=== PATIENT | male | born 1935 | race Caucasian/White ===

== ENCOUNTER 2017-08-19 05:30 | Inpatient (IN) | payer OTHER ==
--- NOTE | 2017-08-19 04:07 | PDOC ---
History of Present Illness - General Chief Complaint: Pain, Acute Stated Complaint: ABDOMINAL PAIN Time Seen by Provider: 08/19/17 04:06 - History of Present Illness Initial Comments: 08/19/17 04:29 This 81-year-old man with a history of hypertension/HLD/DM/[place] 3 with stents 7 , history of ruptured AAA and ulcerative colitis presents with approximately 6 hour history of epigastric pain and nausea/vomiting. Patient states that he ate Thanksgiving dinner last night at approximately 6 PM. He was well until he noted epigastric pain on the drive home . Onset of pain was approximately 9 PM with worsening over the next few hours. Patient had vomiting twice over the next 2-3 hours with emesis consisting of partially digested food (especially shrimp). The patient had small, formed bowel movement a few hours prior to presentation. He denies chest pain/shortness of breath/diaphoresis. He has not had any dysuria/hematuria/urinary frequency or urgency. He denies fever/ chills. Patient has been taking his medications as prescribed. No recent acute febrile illnesses. No sick contacts. No recent extended travel. Past History - Past Medical History Allergies/Adverse Reactions: Allergies Allergy/AdvReac Type Severity Reaction Status Date / Time No Known Allergies Allergy Verified 08/22/16 19:36 Home Medications: Ambulatory Orders Multivit-Min/FA/Lycopen/Lutein [Centrum Silver Tablet] 1 each PO DAILY 08/22/16 Rosuvastatin Calcium [Crestor] 20 mg PO HS 08/22/16 Apixaban [Eliquis] 2.5 mg PO BID tablet 08/25/16 Ferrous Gluconate [Iron] 256 mg PO DAILY 08/19/17 Anemia: Yes (microcytic) Asthma: No Cancer: No Cardiac Disorders: Yes ([place] X 2, AAA) CVA: No COPD: No CHF: Yes Dementia: No Diabetes: Yes (2003) GI Disorders: Yes (COLITIS) Disorders: No HTN: Yes Hypercholesterolemia: Yes Liver Disease: No Seizures: No Thyroid Disease: No - Surgical History Abdominal Surgery: Yes (AAA APR 2012) Appendectomy: No Cardiac Surgery: Yes (ANGIOPLASTY TIMES 6 STENTS LAST JUN 2014) Cholecystectomy: No Lung Surgery: No Neurologic Surgery: No Orthopedic Surgery: No - Immunization History Td Vaccination: No TDAP Vaccination: No Immunization Up to Date: No - Suicide/Smoking/Psychosocial Hx Smoking History: Former smoker Have you smoked in the past 12 months: No Number of Cigarettes Smoked Daily: 0 If you are a former smoker, when did you quit?: 1994 Hx Alcohol Use: No Drug/Substance Use Hx: No Substance Use Type: None Hx Substance Use Treatment: No Review of Systems - Review of Systems Able to Perform ROS?: Yes Comments:: 12 point review of systems is negative except for what is noted in the history of present illness *Physical Exam - Physical Exam Comments: GENERAL: Elderly man, alert and oriented 3, in moderate distress secondary to epigastric pain HEAD: Normal with no signs of trauma. EYES: PERRLA, EOMI, sclera anicteric, conjunctiva clear. ENT: Ears normal, nares patent, oropharynx clear without exudates. Dry mucous membranes. NECK: Normal range of motion, supple without lymphadenopathy, JVD, or masses. LUNGS: Breath sounds equal, clear to auscultation bilaterally. No wheezes, and no crackles. HEART:Regular rate and rhythm, normal S1 and S2 without murmur, rub or gallop. ABDOMEN:.Hypoactive bowel sounds. Moderate epigastric tenderness. No Desir's sign..No masses No distention. No rebound. Positive moderate involuntary guarding EXTREMITIES: Normal range of motion, no edema. No clubbing or cyanosis. No erythema, or tenderness. NEUROLOGICAL: Cranial nerves II through XII grossly intact. Normal speech. No focal neurological deficits. MUSCULOSKELETAL: Back non-tender to palpation, no CVA tenderness SKIN: Warm, Dry, normal turgor, no rashes or lesions noted. ED Treatment Course - LABORATORY CBC & Chemistry Diagram: 08/21/17 06:20 08/21/17 06:20 Progress Note - Progress Note Progress Note: Laboratory evaluation notable for a normal CBC. BUN is elevated at 30 with a creatinine of 1.4. Transaminases are elevated with AST of 431 and ALT of 293. Alkaline phosphatase 151 with bilirubin normal at 0.8. Lipase markedly elevated at 9119 Clinical presentation consistent with acute pancreatitis. patient has been transported to [facility] for Abd/Pelvic CT Care of patient transferred to incoming physician at end of shift *DC/Admit/Observation/Transfer Diagnosis at time of Disposition: Cholecystitis, Pancreatitis, Acute gallstone pancreatitis - Discharge Dispostion Condition at time of disposition: Stable - Referrals - Patient Instructions - Post Discharge Activity
[2017-08-19 05:45] LABS: BASOPHIL 0.3 % (0-2.0); EOSINOPHIL 0.5 % (0-4.5); MCH 28.7 pg (25.7-33.7); MCHC 33.2 g/dl (32.0-35.9); MEAN CELL VOLUME 86.5 fl (80-96); MEAN PLT VOLUME 9.2 fl (7.5-11.1); PLATELET COUNT 159 K/MM3 (134-434); RDW 13.4 % (11.9-15.9); WHITE BLOOD COUNT 7.4 K/mm3 (4.0-10.0)
[2017-08-19] MEDS ORDERED: morphine CARPU-JECT 4 MG/1 ML DISP.SYRIN IVPUSH ONE (05:49)
[2017-08-19] MEDS ORDERED: morphine CARPU-JECT 10 MG/1 ML DISP.SYRIN ONE (05:51)
[2017-08-19] MEDS ORDERED: ONDANSETRON 4 MG/2 ML VIAL ONE ×2 (05:52→07:53)
[2017-08-19] MEDS ORDERED: ONDANSETRON 4 MG/2 ML VIAL IVPUSH ONE ×2 (05:56→07:49)
[2017-08-19 05:57] LABS: INR 1.27 (0.82-1.09); PROTHROMBIN TIME (PATIENT) 14.4 SEC (9.98-11.88)
[2017-08-19 06:09] LABS: ALBUMIN 4.1 g/dl (3.4-5.0); ANION GAP 6 (8-16); BILIRUBIN,TOTAL 0.8 mg/dL (0.2-1.0); CALCIUM 8.7 mg/dL (8.5-10.1); CO2 28 mmol/L (21-32); CREATININE 1.4 mg/dL (0.7-1.3); GLUCOSE,RANDOM 183 mg/dL (74-106); SGPT/ALT 293 U/L (12-78)
[2017-08-19 06:10] LABS: ALK PHOS 151 U/L (45-117); TOT PROT 7.9 g/dl (6.4-8.2)
[2017-08-19 06:11] LABS: SGOT/AST 431 U/L (15-37)
[2017-08-19 06:33] LABS: CPK 115 IU/L (39-308)
[2017-08-19 06:34] LABS: TROPONIN I < 0.02 ng/ml (0.00-0.05)
[2017-08-19] MEDS ORDERED: morphine CARPU-JECT 2 MG/1 ML DISP.SYRIN IVPUSH ONE (06:56)
[2017-08-19] MEDS ORDERED: ONDANSETRON 4 MG/2 ML VIAL IVPUSH STA (06:56)
--- NOTE | 2017-08-19 07:41 | PDOC ---
*Physical Exam - Vital Signs Last Vital Signs Temp Pulse Resp BP Pulse Ox 98.3 F 94 H 20 150/100 98 08/19/17 07:19 08/19/17 07:19 08/19/17 07:19 08/19/17 07:19 08/19/17 07:19 ED Treatment Course - LABORATORY CBC & Chemistry Diagram: 08/19/17 04:41 08/19/17 04:41 - ADDITIONAL ORDERS Additional order review: Laboratory Results 08/19/17 08/19/17 08/19/17 04:41 04:41 04:41 PT with INR 14.40 H INR 1.27 H Sodium 139 Potassium 4.7 Chloride 105 Carbon Dioxide 28 Anion Gap 6 L BUN 30 H Creatinine 1.4 H Creat Clearance w eGFR 48.64 Random Glucose 183 H Calcium 8.7 Total Bilirubin 0.8 AST 431 H ALT 293 H Alkaline Phosphatase 151 H Creatine Kinase 115 Troponin I < 0.02 Total Protein 7.9 Albumin 4.1 Lipase 9119 H 08/19/17 04:41 RBC 5.21 MCV 86.5 MCHC 33.2 RDW 13.4 MPV 9.2 Neutrophils % 81.0 Lymphocytes % 12.4 Monocytes % 5.8 Eosinophils % 0.5 Basophils % 0.3 - Medications Given in the ED: ED Medications Discontinued Medications Generic Name Dose Route Start Last Admin Trade Name Eitan PRN Reason Stop Dose Admin Morphine Sulfate 6 mg 08/19/17 05:49 08/19/17 05:55 Morphine Injection - IVPUSH 08/19/17 05:50 6 mg NOW ONE Administration Ondansetron HCl 4 mg 08/19/17 05:56 08/19/17 05:56 Zofran Injection IVPUSH 08/19/17 05:57 4 mg NOW ONE Administration Medical Decision Making - Medical Decision Making 08/19/17 10:12 Gallstone Pancreatitis, No Fever, No White Count GB Wall Thickening, Pericholycystic Fluid and Distended GB Discussed with Dr. Ferrer, General Surgery, Calls out to ID and Zaid HERRERA and Az Accepted at [facility] by Dr. Jensen Will Give Meropenum and Transfer by squad (ground) 08/19/17 10:[address] Terrance Shore [place] He Will See PT at [facility] when he arrives 08/19/17 10:[address] Jensen Aware of Progress thus far. *DC/Admit/Observation/Transfer Diagnosis at time of Disposition: Cholecystitis, Acute gallstone pancreatitis Pancreatitis Qualifiers: Chronicity: acute Pancreatitis type: biliary Acute pancreatitis complication: unspecified Qualified Code(s): K85.10 - Biliary acute pancreatitis without necrosis or infection - Discharge Dispostion Condition at time of disposition: Stable Admit: Yes - Referrals Referrals: Austin Hodges MD [Primary Care Provider] - - Patient Instructions - Post Discharge Activity
[2017-08-19] MEDS ORDERED: HYDROmorphone HCL CARPU-JECT 1 MG/1 ML DISP.SYRIN IVPB ONE ×2 (07:49→21:15)
[2017-08-19] MEDS ORDERED: HYDROmorphone HCL CARPU-JECT 1 MG/1 ML DISP.SYRIN ONE ×2 (07:53→11:07)
[2017-08-19 09:44] LABS: URINE APPEARANCE Clear; URINE BILIRUBIN 1+ (NEGATIVE); URINE GLUCOSE (UA) Negative (NEGATIVE); URINE KETONE 1+ (NEGATIVE); URINE NITRITE Negative (NEGATIVE)
[2017-08-19 09:45] LABS: URINE BLOOD 1+ (NEGATIVE); URINE COLOR YELLOW; URINE LEUK ESTERASE 1+ (NEGATIVE); URINE PROTEIN 2+ (NEGATIVE)
[2017-08-19 10:09] LABS: URINE BACTERIA MODERATE /hpf (NEGATIVE)
[2017-08-19] MEDS ORDERED: MEROPENEM 1,000 MG in DEXTROSE 5%-WATER - 100 ML IVPB ONE (10:09)
--- NOTE | 2017-08-19 10:31 | CON.ID ---
Consult Consult Specialty:: infectious diseases Reason for Consultation:: choleycystitis,pancreatitis - History of Present Illness Chief Complaint: abd pain History of Present Illness: 79 year-old male with a PMH significant for HTN, HLD, CAD s/p [place] x3 s/p CABG s/ p stents x 7 (on Eliquis), AAA s/p surgical repair (04/2012), IDDM, and inflammatory bowel disesase/ulcerative colitis. with infection with mssa of the wound with removal of xiphistenum came because of epigastric pain, nausea and vomiting following Thanksgiving dinner. denies any other issues was wiht his son had dinner followed by small amount alcohol currently patients main symptoms are abd pain in r uq - History Source History Provided By: Patient, Family Member Limitations to Obtaining History: No Limitations - Past Medical History Cardio/Vascular: Yes: CAD, HTN, [place] Gastrointestinal: Yes: Inflamatory Bowel Disease (since 2003) Endocrine: Yes: Diabetes Mellitus - Past Surgical History Past Surgical History: Yes: AAA Repair, Stent - Alcohol/Substance Use Hx Alcohol Use: No - Smoking History Smoking history: Former smoker Have you smoked in the past 12 months: No Aproximately how many cigarettes per day: 0 If you are a former smoker, when did you quit?: 1994 Home Medications - Allergies Allergies/Adverse Reactions: Allergies Allergy/AdvReac Type Severity Reaction Status Date / Time No Known Allergies Allergy Verified 08/22/16 19:36 - Home Medications Home Medications: Ambulatory Orders Multivit-Min/FA/Lycopen/Lutein [Centrum Silver Tablet] 1 each PO DAILY 08/22/16 Rosuvastatin Calcium [Crestor] 20 mg PO HS 08/22/16 Apixaban [Eliquis] 2.5 mg PO BID tablet 08/25/16 Ferrous Gluconate [Iron] 256 mg PO DAILY 08/19/17 Family Disease History - Family Disease History Family Disease History: Other: Father ( 87), Mother ( 78), Sister ( cirrhosis 70s) Review of Systems - Review of Systems Constitutional: reports: No Symptoms Eyes: reports: No Symptoms HENT: reports: No Symptoms Neck: reports: No Symptoms Cardiovascular: reports: No Symptoms Respiratory: reports: No Symptoms Gastrointestinal: reports: Abdominal Pain (ruq) Genitourinary: reports: No Symptoms Musculoskeletal: reports: No Symptoms Integumentary: reports: No Symptoms Neurological: reports: No Symptoms Endocrine: reports: No Symptoms Hematology/Lymphatic: reports: No Symptoms Psychiatric: reports: No Symptoms Physical Exam Vital Signs: Vital Signs Temperature 98.1 F 08/19/17 07:30 Pulse Rate 110 H 08/19/17 10:26 Respiratory Rate 20 08/19/17 10:26 Blood Pressure 139/92 08/19/17 10:26 O2 Sat by Pulse Oximetry (%) 98 08/19/17 07:30 Constitutional: Yes: Well Nourished, Calm, Mild Distress Eyes: Yes: Conjunctiva Clear Neck: Yes: Supple, Trachea Midline Cardiovascular: Yes: Regular Rate and Rhythm, Other (scar on the chest well healed) Respiratory: Yes: Regular, CTA Bilaterally Gastrointestinal: Yes: Hypoactive Bowel Sounds, Tenderness (ruq,no rebound, guarding and rigidity), Other (well healed scar on the abdomen) Musculoskeletal: Yes: WNL Extremities: Yes: WNL Neurological: Yes: Alert, Oriented Psychiatric: Yes: Alert, Oriented Labs: CBC, BMP 08/19/17 04:41 08/19/17 04:41 Imaging - Results Ultrasound: Report Reviewed, Image Reviewed EKG: Report Reviewed, Image Reviewed Assessment/Plan this patient with multiple medical problems and history of staph infection and immunocompromised being admitted for choleycystitis and pancreatitis ct scan seen patient also has hydrops choleycystitis pancreatitis hydrops abd pain plan will start patient on immipenam very close watch if patient starts detoriating consider icu monitor for fevers and wbc surgery on case will need surgery once stable rest as per primary team
--- NOTE | 2017-08-19 10:34 | CONSULT ---
Consult Consult Specialty:: General Surgery Referred by:: Reddy Sorenson Reason for Consultation:: Abdominal Pain - History of Present Illness Chief Complaint: Abdominal Pain History of Present Illness: 81 yo male PMH HTN, DM, HLD, IBD ulcerative colitis, CAD s/p CABGX4, previous [place] X3 first in 1994, s/p AAA s/p open repair, 7 stents on Eliquis, chronic systolic and diastolic heart failure presented to the ED with epigastric pain, nausea and vomiting following Thanksgiving dinner. He ate dinner at 6pm along with a small amount of alcohol. At 10pm he had an acute onset of epigastric pain which worsened over the next few hours. He had two episodes of emesis of partially digested food. He also had a small bowel movement. Patient denies chest pain, palpitations, and shortness of breath. He had a similar upper abdominal pain one year ago that was treated non-operatively and he was aware of gallstones. We were asked to assess. - History Source History Provided By: Patient Limitations to Obtaining History: No Limitations - Past Medical History Cardio/Vascular: Yes: CAD, HTN, [place] Gastrointestinal: Yes: Inflamatory Bowel Disease (since 2003) Endocrine: Yes: Diabetes Mellitus - Past Surgical History Past Surgical History: Yes: AAA Repair, Stent - Alcohol/Substance Use Hx Alcohol Use: No - Smoking History Smoking history: Former smoker Have you smoked in the past 12 months: No Aproximately how many cigarettes per day: 0 If you are a former smoker, when did you quit?: 1994 - Social History [facility] History of Recent Travel: No Home Medications - Allergies Allergies/Adverse Reactions: Allergies Allergy/AdvReac Type Severity Reaction Status Date / Time No Known Allergies Allergy Verified 08/22/16 19:36 - Home Medications Home Medications: Ambulatory Orders Multivit-Min/FA/Lycopen/Lutein [Centrum Silver Tablet] 1 each PO DAILY 08/22/16 Rosuvastatin Calcium [Crestor] 20 mg PO HS 08/22/16 Apixaban [Eliquis] 2.5 mg PO BID tablet 08/25/16 Ferrous Gluconate [Iron] 256 mg PO DAILY 08/19/17 Family Disease History - Family Disease History Family Disease History: Other: Father ( 87), Mother ( 78), Sister ( cirrhosis 70s) Review of Systems - Review of Systems Constitutional: denies: Chills, Fever Eyes: denies: Blurred Vision, Recent Change in Vision HENT: denies: Difficult Swallowing, Throat Pain Neck: denies: Stiffness, Swollen Glands Cardiovascular: denies: Chest Pain, Palpitations, Shortness of Breath Respiratory: denies: Cough, SOB Gastrointestinal: reports: Abdominal Pain (previous episode of similar pain 1 year ago), Indigestion Genitourinary: denies: Frequency, Incontinence Breasts: reports: No Symptoms Reported. denies: Pain Musculoskeletal: reports: Back Pain, Joint Pain Integumentary: denies: Lesions, Rash Neurological: denies: Change in LOC, Headache Endocrine: denies: Unexplained Weight Gain, Unexplained Weight Loss Hematology/Lymphatic: denies: Easily Bruised, Excessive Bleeding Psychiatric: denies: Anxiety, Depression Pain Intensity: 5 Physical Exam Vital Signs: Vital Signs Temperature 98.1 F 08/19/17 07:30 Pulse Rate 110 H 08/19/17 10:26 Respiratory Rate 20 08/19/17 10:26 Blood Pressure 139/92 08/19/17 10:26 O2 Sat by Pulse Oximetry (%) 98 08/19/17 07:30 Vital Signs Period Temp Pulse Resp BP Sys/[place]ont Pulse Ox Last 24 Hr 97.3 F-98.3 F 88-110 16-24 139-177/92-101 97-99 Constitutional: Yes: Well Nourished, Calm, Mild Distress Eyes: Yes: Conjunctiva Clear, EOM Intact HENT: Yes: Atraumatic, Normocephalic Neck: Yes: Supple, Trachea Midline Cardiovascular: Yes: Regular Rate and Rhythm Respiratory: Yes: Regular, CTA Bilaterally, Other (median sternotomy scar with excavated distal area) Gastrointestinal: Yes: Normal Bowel Sounds, Soft, Palpable Mass (GB is palpable) , Tenderness (tenderness right subcostal, +murphys, voluntary gaurding), Tenderness, Epigastrium, Other (healed midline lapraotomy). No: Ascites, Tenderness, Rebound, Vomiting ...Rectal Exam: Yes: Mass, Sphincter Tone Normal Renal/: No: CVA Tenderness - Left, CVA Tenderness - Right Musculoskeletal: No: Muscle Pain, Muscle Weakness Extremities: No: Cool, Cyanosis Edema: No Peripheral Pulses WNL: Yes Wound/Incision: Yes: Clean/Dry, Other (midean sternotomy and midline lapraotyomy scar well healed) Neurological: Yes: Alert, Oriented ...Motor Strength: WNL, LLE, RLE Psychiatric: Yes: Alert, Oriented Labs: CBC, BMP 08/19/17 04:41 08/19/17 04:41 CBC,CMP WBC 7.4 K/mm3 (4.0-10.0) 08/19/17 04:41 RBC 5.21 M/mm3 (4.00-5.60) 08/19/17 04:41 Hgb 15.0 GM/dL (11.7-16.9) 08/19/17 04:41 Hct 45.1 % (35.4-49) 08/19/17 04:41 MCV 86.5 fl (80-96) 08/19/17 04:41 MCH 28.7 pg (25.7-33.7) 08/19/17 04:41 MCHC 33.2 g/dl (32.0-35.9) 08/19/17 04:41 RDW 13.4 % (11.9-15.9) 08/19/17 04:41 Plt Count 159 K/MM3 (134-434) 08/19/17 04:41 MPV 9.2 fl (7.5-11.1) 08/19/17 04:41 Neutrophils % 81.0 % (42.8-82.8) 08/19/17 04:41 Lymphocytes % 12.4 % (8-40) 08/19/17 04:41 Monocytes % 5.8 % (3.8-10.2) 08/19/17 04:41 Eosinophils % 0.5 % (0-4.5) 08/19/17 04:41 Basophils % 0.3 % (0-2.0) 08/19/17 04:41 Sodium 139 mmol/L (136-145) 08/19/17 04:41 Potassium 4.7 mmol/L (3.5-5.1) 08/19/17 04:41 Chloride 105 mmol/L (98-107) 08/19/17 04:41 Carbon Dioxide 28 mmol/L (21-32) 08/19/17 04:41 Anion Gap 6 (8-16) L 08/19/17 04:41 BUN 30 mg/dL (7-18) H 08/19/17 04:41 Creatinine 1.4 mg/dL (0.7-1.3) H 08/19/17 04:41 Creat Clearance w eGFR 48.64 (>60) 08/19/17 04:41 Random Glucose 183 mg/dL (74-106) H 08/19/17 04:41 Calcium 8.7 mg/dL (8.5-10.1) 08/19/17 04:41 Total Bilirubin 0.8 mg/dL (0.2-1.0) 08/19/17 04:41 AST 431 U/L (15-37) H 08/19/17 04:41 ALT 293 U/L (12-78) H 08/19/17 04:41 Alkaline Phosphatase 151 U/L (45-117) H 08/19/17 04:41 Creatine Kinase 115 IU/L (39-308) 08/19/17 04:41 Troponin I < 0.02 ng/ml (0.00-0.05) 08/19/17 04:41 Total Protein 7.9 g/dl (6.4-8.2) 08/19/17 04:41 Albumin 4.1 g/dl (3.4-5.0) 08/19/17 04:41 Lipase 9119 U/L (73-393) H 08/19/17 04:41 Abnormal Lab Results 08/19/17 08/19/17 08/19/17 04:41 04:41 04:41 PT with INR 14.40 H INR 1.27 H Anion Gap 6 L BUN 30 H Creatinine 1.4 H Random Glucose 183 H AST 431 H ALT 293 H Alkaline Phosphatase 151 H Lipase 9119 H Urine Protein Urine Ketones Urine Blood Urine Bilirubin Ur Leukocyte Esterase 08/19/17 09:40 PT with INR INR Anion Gap BUN Creatinine Random Glucose AST ALT Alkaline Phosphatase Lipase Urine Protein 2+ H Urine Ketones 1+ H Urine Blood 1+ H Urine Bilirubin 1+ H Ur Leukocyte Esterase 1+ H Imaging - Results Cat Scan: Report Reviewed, Image Reviewed (distended GB with impressive edema in the GB wall/ pericholecystic fluid and small dependent stone in GB) Ultrasound: Report Reviewed, Image Reviewed (large distend GB with small stones , wall thickening and pericholecystic fluid) Problem List - Problems (1) Acute gallstone pancreatitis Assessment/Plan: 81yo male with signifcant cardiac history presents with acute gallstone pancreatitis and cholecystitis after thanksgiving dinner. He is in guarded condition. He may be a surgical candidate but should be fully evaluated and medically optimized. The discussion was had about the possibility of cholecystectomy after he is stabilized alternatively if he is deemed to great a risk IR PTC and ERCP are possible alternatives. NPO and IVF hydration Trend labs GI evaluation - MRCP? Consider IV antibiotics - ID consult Cardiology assessment Anticipating and Laparoscopic cholecystetcomy during this admission (early- mid next week?) Please kindly provide risk stratification for general anesthesia we will continue to follow Thank you for the opportunity to participate in the care of this patient. Code(s): K85.10 - BILIARY ACUTE PANCREATITIS WITHOUT NECROSIS OR INFECTION (2) Pancreatitis Assessment/Plan: Admit to medicine NPO and IVF hydration Trend labs (lipase >9000) Medical optimization in anticipation of Cholecystetcomy Code(s): K85.90 - ACUTE PANCREATITIS WITHOUT NECROSIS OR INFECTION, UNSP Qualifiers: Chronicity: acute Pancreatitis type: biliary Acute pancreatitis complication: unspecified Qualified Code(s): K85.10 - Biliary acute pancreatitis without necrosis or infection (3) Coronary arteriosclerosis Assessment/Plan: Cardiology evaluation as deemed appropriate by primary in anticipation of surgery Code(s): I25.10 - ATHSCL HEART DISEASE OF [place] CORONARY ARTERY W/O ANG PCTRS (4) Diabetes Code(s): E11.9 - TYPE 2 DIABETES MELLITUS WITHOUT COMPLICATIONS (5) Hyperlipidemia Code(s): E78.5 - HYPERLIPIDEMIA, UNSPECIFIED
[2017-08-19] MEDS ORDERED: HYDROmorphone HCL CARPU-JECT 1 MG/1 ML DISP.SYRIN IVPUSH ONE ×2 (11:05→20:10)
--- NOTE | 2017-08-19 13:04 | HP ---
CHIEF COMPLAINT: PCP: HISTORY OF PRESENT ILLNESS: 79 year-old male with a PMH significant for HTN, HLD, CAD s/p KS x3 s/p CABG s/ p stents x 7 (on Eliquis), chronic systolic and diastolic heart failure, AAA s/ p surgical repair (04/2012), IDDM, and inflammatory bowel disesase/ulcerative colitis. Presented to the ED with epigastric pain, nausea and vomiting following Thanksgiving dinner. He had dinner at 6pm. At 9pm he had an acute onset of epigastric pain which worsened over the next few hours. He had two episodes of emesis of partially digested food. He also had a small bowel movement. Patient denies chest pain, palpitations, SOB, GARCIA, or lower extremity edema. He denies headache, fever, sweats, chills. He denies dysuria, hematuria, frequency, or urgency. ER course was notable for: (1) BP 177/101 (2) Lipase 9119 Recent Travel: No PAST MEDICAL HISTORY: Hypertension Hyperlipidemia Coronary artery disease AAA IDDM Inflammatory bowel disease/ulcerative colitis PAST SURGICAL HISTORY: Cardiac stents x7 CABG complicated by sternal wound infection Surgical repair of AAA Social History: Smoking: quit 1994 Alcohol: no Drugs: no Family History: non-contributory Allergies No Known Allergies Allergy (Verified 08/22/16 19:36) HOME MEDICATIONS: Home Medications Medication Instructions Recorded Multivit-Min/FA/Lycopen/Lutein 1 each PO DAILY 08/22/16 [Centrum Silver Tablet] Rosuvastatin Calcium [Crestor] 20 mg PO HS 08/22/16 Apixaban [Eliquis] 2.5 mg PO BID tablet 08/25/16 Ferrous Gluconate [Iron] 256 mg PO DAILY 08/19/17 REVIEW OF SYSTEMS CONSTITUTIONAL: Absent: fever, chills, diaphoresis, generalized weakness, malaise, loss of appetite, weight change HEENT: Absent: rhinorrhea, nasal congestion, throat pain, throat swelling, difficulty swallowing, mouth swelling, ear pain, eye pain, visual changes CARDIOVASCULAR: Absent: chest pain, syncope, palpitations, irregular heart rate, lightheadedness , peripheral edema RESPIRATORY: Absent: cough, shortness of breath, dyspnea with exertion, orthopnea, wheezing, stridor, hemoptysis GASTROINTESTINAL: Present: abdominal pain, vomiting Absent: abdominal distension, nausea, diarrhea, constipation, melena, hematochezia GENITOURINARY: Absent: dysuria, frequency, urgency, hesitancy, hematuria, flank pain, genital pain MUSCULOSKELETAL: Absent: myalgia, arthralgia, joint swelling, back pain, neck pain SKIN: Absent: rash, itching, pallor HEMATOLOGIC/IMMUNOLOGIC: Absent: easy bleeding, easy bruising, lymphadenopathy, frequent infections ENDOCRINE: Absent: unexplained weight gain, unexplained weight loss, heat intolerance, cold intolerance NEUROLOGIC: Absent: headache, focal weakness or paresthesias, dizziness, unsteady gait, seizure, mental status changes, bladder or bowel incontinence PSYCHIATRIC: Absent: anxiety, depression, suicidal or homicidal ideation, hallucinations. PHYSICAL EXAMINATION Vital Signs - 24 hr 08/19/17 08/19/17 08/19/17 04:08 05:41 07:19 Temperature 97.5 F L 97.3 F L 98.3 F Pulse Rate 90 Pulse Rate [ 88 94 H Right Apical] Respiratory 18 16 20 Rate Blood Pressure 159/94 Blood Pressure 177/101 150/100 [Left Arm] O2 Sat by Pulse 99 97 98 Oximetry (%) 08/19/17 08/19/17 08/19/17 07:30 09:03 09:29 Temperature 98.1 F Pulse Rate Pulse Rate [ 92 H 100 H Right Apical] Respiratory 20 24 Rate Blood Pressure Blood Pressure 154/95 166/93 168/97 [Left Arm] O2 Sat by Pulse 98 Oximetry (%) 08/19/17 10:26 Temperature Pulse Rate Pulse Rate [ 110 H Right Apical] Respiratory 20 Rate Blood Pressure Blood Pressure 139/92 [Left Arm] O2 Sat by Pulse Oximetry (%) GENERAL: Awake, alert, and fully oriented; anxious HEAD: Normal with no signs of trauma. EYES: Pupils equal, round and reactive to light, extraocular movements intact, sclera anicteric, conjunctiva clear. No ptosis. EARS, NOSE, THROAT: Ears normal, nares patent, oropharynx clear without exudates. Moist mucous membranes. NECK: Normal range of motion, supple without lymphadenopathy, JVD, or masses. LUNGS: Breath sounds equal, clear to auscultation bilaterally. No wheezes, and no crackles. No accessory muscle use. HEART: Regular rate and rhythm, normal S1 and S2 without murmur, rub or gallop. ABDOMEN: Soft, nontender, not distended, normoactive bowel sounds, no guarding, no rebound, no masses. MUSCULOSKELETAL: Normal range of motion at all joints. No bony deformities or tenderness. No CVA tenderness. UPPER EXTREMITIES: 2+ pulses, warm, well-perfused. No cyanosis. No clubbing. No peripheral edema. LOWER EXTREMITIES: 2+ pulses, warm, well-perfused. No calf tenderness. No peripheral edema. NEUROLOGICAL: Cranial nerves II-XII intact. Normal speech. PSYCHIATRIC: Anxious SKIN: Warm, dry, normal turgor Laboratory Results - last 24 hr 08/19/17 08/19/17 08/19/17 04:41 04:41 04:41 WBC 7.4 RBC 5.21 Hgb 15.0 Hct 45.1 MCV 86.5 MCH 28.7 MCHC 33.2 RDW 13.4 Plt Count 159 MPV 9.2 Neutrophils % 81.0 Lymphocytes % 12.4 Monocytes % 5.8 Eosinophils % 0.5 Basophils % 0.3 PT with INR 14.40 H INR 1.27 H Sodium 139 Potassium 4.7 Chloride 105 Carbon Dioxide 28 Anion Gap 6 L BUN 30 H Creatinine 1.4 H Creat Clearance w eGFR 48.64 Random Glucose 183 H Calcium 8.7 Total Bilirubin 0.8 AST 431 H ALT 293 H Alkaline Phosphatase 151 H Creatine Kinase Troponin I Total Protein 7.9 Albumin 4.1 Lipase Urine Color Urine Appearance Urine pH Ur Specific [place] Urine Protein Urine Glucose (UA) Urine Ketones Urine Blood Urine Nitrite Urine Bilirubin Urine Urobilinogen Ur Leukocyte Esterase Urine RBC Urine WBC Ur Epithelial Cells Urine Bacteria 08/19/17 08/19/17 04:41 09:40 WBC RBC Hgb Hct MCV MCH MCHC RDW Plt Count MPV Neutrophils % Lymphocytes % Monocytes % Eosinophils % Basophils % PT with INR INR Sodium Potassium Chloride Carbon Dioxide Anion Gap BUN Creatinine Creat Clearance w eGFR Random Glucose Calcium Total Bilirubin AST ALT Alkaline Phosphatase Creatine Kinase 115 Troponin I < 0.02 Total Protein Albumin Lipase 9119 H Urine Color Yellow Urine Appearance Clear Urine pH 6.0 Ur Specific [place] 1.025 Urine Protein 2+ H Urine Glucose (UA) Negative Urine Ketones 1+ H Urine Blood 1+ H Urine Nitrite Negative Urine Bilirubin 1+ H Urine Urobilinogen 1.0 Ur Leukocyte Esterase 1+ H Urine RBC 3-5 Urine WBC 5-10 Ur Epithelial Cells Moderate Urine Bacteria Moderate ASSESSMENT/PLAN: 79 year-old male with a PMH significant for HTN, HLD, CAD s/p KS x3 s/p CABG s/ p stents x 7, systolic and diastolic heart failure, AAA, IDDM, and inflammatory bowel disesase/ulcerative colitis. Admitted for acute gallstone pancreatitis. Acute gallstone pancreatitis --CTAP: overdistended hydrops GB, layering stones, suggestion of free fluid --US: mild anterior free fluid and edema; significant 12mm wall thickening and edema anterior wall; layering stones --LFTs elevated --Lipase >9000 --no fever, no leukocytosis --MRCP ordered --continue IV fluids but close monitoring for volume overload in this 81 year -old man (looks older than stated age) with significant cardiac history and unknown valvular status as last echo available is 2013 --GI and surgery following CAD s/p CABG s/p stents x 7 --stop Eliquis and start IV heparin due to possible surgical intervention --not on home ASA or beta dariel; hold statin --consider cardiology consult for pre-operative evaluation Chronic systolic and diastolic heart failure --last available echo from 2013: LV mildly reduced, impaired relaxation, mild global hypokinesis; trace TR, mild AI --appears euvolemic --echo ordered IDDM --Novolog sliding scale coverage IBD/ulcerative colitis --no acute issues F/E/N Fluids: NS @ 100mL/hr Electrolytes: replete as indicated Nutrition: NPO DVT prophylaxis: heparin drip Physical therapy evaluation Dispo: continues to require inpatient care. Full code. Visit type - Emergency Visit Emergency Visit: Yes ED Registration Date: 08/19/17 Care time: The patient presented to the Emergency Department on the above date and was hospitalized for further evaluation of their emergent condition. - New Patient This patient is new to me today: Yes Date on this admission: 08/19/17 - Critical Care Critical Care patient: No
[2017-08-19 14:42] VITALS: BMI 20.7
--- NOTE | 2017-08-19 15:32 | HP ---
CHIEF COMPLAINT: PCP: HISTORY OF PRESENT ILLNESS: ER course was notable for: (1) (2) (3) Recent Travel: PAST MEDICAL HISTORY: PAST SURGICAL HISTORY: Social History: Smoking: Alcohol: Drugs: Family History: Allergies No Known Allergies Allergy (Verified 08/22/16 19:36) HOME MEDICATIONS: Home Medications Medication Instructions Recorded Multivit-Min/FA/Lycopen/Lutein 1 each PO DAILY 08/22/16 [Centrum Silver Tablet] Rosuvastatin Calcium [Crestor] 20 mg PO HS 08/22/16 Apixaban [Eliquis] 2.5 mg PO BID tablet 08/25/16 Ferrous Gluconate [Iron] 256 mg PO DAILY 08/19/17 REVIEW OF SYSTEMS CONSTITUTIONAL: Absent: fever, chills, diaphoresis, generalized weakness, malaise, loss of appetite, weight change HEENT: Absent: rhinorrhea, nasal congestion, throat pain, throat swelling, difficulty swallowing, mouth swelling, ear pain, eye pain, visual changes CARDIOVASCULAR: Absent: chest pain, syncope, palpitations, irregular heart rate, lightheadedness , peripheral edema RESPIRATORY: Absent: cough, shortness of breath, dyspnea with exertion, orthopnea, wheezing, stridor, hemoptysis GASTROINTESTINAL: Absent: abdominal pain, abdominal distension, nausea, vomiting, diarrhea, constipation, melena, hematochezia GENITOURINARY: Absent: dysuria, frequency, urgency, hesitancy, hematuria, flank pain, genital pain MUSCULOSKELETAL: Absent: myalgia, arthralgia, joint swelling, back pain, neck pain SKIN: Absent: rash, itching, pallor HEMATOLOGIC/IMMUNOLOGIC: Absent: easy bleeding, easy bruising, lymphadenopathy, frequent infections ENDOCRINE: Absent: unexplained weight gain, unexplained weight loss, heat intolerance, cold intolerance NEUROLOGIC: Absent: headache, focal weakness or paresthesias, dizziness, unsteady gait, seizure, mental status changes, bladder or bowel incontinence PSYCHIATRIC: Absent: anxiety, depression, suicidal or homicidal ideation, hallucinations. PHYSICAL EXAMINATION Vital Signs - 24 hr 08/19/17 08/19/17 08/19/17 04:08 05:41 07:19 Temperature 97.5 F L 97.3 F L 98.3 F Pulse Rate 90 Pulse Rate [ 88 94 H Right Apical] Respiratory 18 16 20 Rate Blood Pressure 159/94 Blood Pressure 177/101 150/100 [Left Arm] O2 Sat by Pulse 99 97 98 Oximetry (%) 08/19/17 08/19/17 08/19/17 07:30 09:03 09:29 Temperature 98.1 F Pulse Rate Pulse Rate [ 92 H 100 H Right Apical] Respiratory 20 24 Rate Blood Pressure Blood Pressure 154/95 166/93 168/97 [Left Arm] O2 Sat by Pulse 98 Oximetry (%) 08/19/17 08/19/17 10:26 12:20 Temperature 97.9 F Pulse Rate 106 H Pulse Rate [ 110 H Right Apical] Respiratory 20 18 Rate Blood Pressure 149/98 Blood Pressure 139/92 [Left Arm] O2 Sat by Pulse 97 Oximetry (%) GENERAL: Awake, alert, and fully oriented, in no acute distress. HEAD: Normal with no signs of trauma. EYES: Pupils equal, round and reactive to light, extraocular movements intact, sclera anicteric, conjunctiva clear. No lid lag. EARS, NOSE, THROAT: Ears normal, nares patent, oropharynx clear without exudates. Moist mucous membranes. NECK: Normal range of motion, supple without lymphadenopathy, JVD, or masses. LUNGS: Breath sounds equal, clear to auscultation bilaterally. No wheezes, and no crackles. No accessory muscle use. HEART: Regular rate and rhythm, normal S1 and S2 without murmur, rub or gallop. ABDOMEN: Soft, nontender, not distended, normoactive bowel sounds, no guarding, no rebound, no masses. No hepatomegaly or splenomegaly. MUSCULOSKELETAL: Normal range of motion at all joints. No bony deformities or tenderness. No CVA tenderness. UPPER EXTREMITIES: 2+ pulses, warm, well-perfused. No cyanosis. No clubbing. No peripheral edema. LOWER EXTREMITIES: 2+ pulses, warm, well-perfused. No calf tenderness. No peripheral edema. NEUROLOGICAL: Cranial nerves II-XII intact. Normal speech. Normal gait. PSYCHIATRIC: Cooperative. Good eye contact. Appropriate mood and affect. SKIN: Warm, dry, normal turgor, no rashes or lesions noted, normal capillary refill. Laboratory Results - last 24 hr 08/19/17 08/19/17 08/19/17 04:41 04:41 04:41 WBC 7.4 RBC 5.21 Hgb 15.0 Hct 45.1 MCV 86.5 MCH 28.7 MCHC 33.2 RDW 13.4 Plt Count 159 MPV 9.2 Neutrophils % 81.0 Lymphocytes % 12.4 Monocytes % 5.8 Eosinophils % 0.5 Basophils % 0.3 PT with INR 14.40 H INR 1.27 H Sodium 139 Potassium 4.7 Chloride 105 Carbon Dioxide 28 Anion Gap 6 L BUN 30 H Creatinine 1.4 H Creat Clearance w eGFR 48.64 Random Glucose 183 H Calcium 8.7 Total Bilirubin 0.8 AST 431 H ALT 293 H Alkaline Phosphatase 151 H Creatine Kinase Troponin I Total Protein 7.9 Albumin 4.1 Lipase Urine Color Urine Appearance Urine pH Ur Specific [place] Urine Protein Urine Glucose (UA) Urine Ketones Urine Blood Urine Nitrite Urine Bilirubin Urine Urobilinogen Ur Leukocyte Esterase Urine RBC Urine WBC Ur Epithelial Cells Urine Bacteria 08/19/17 08/19/17 04:41 09:40 WBC RBC Hgb Hct MCV MCH MCHC RDW Plt Count MPV Neutrophils % Lymphocytes % Monocytes % Eosinophils % Basophils % PT with INR INR Sodium Potassium Chloride Carbon Dioxide Anion Gap BUN Creatinine Creat Clearance w eGFR Random Glucose Calcium Total Bilirubin AST ALT Alkaline Phosphatase Creatine Kinase 115 Troponin I < 0.02 Total Protein Albumin Lipase 9119 H Urine Color Yellow Urine Appearance Clear Urine pH 6.0 Ur Specific [place] 1.025 Urine Protein 2+ H Urine Glucose (UA) Negative Urine Ketones 1+ H Urine Blood 1+ H Urine Nitrite Negative Urine Bilirubin 1+ H Urine Urobilinogen 1.0 Ur Leukocyte Esterase 1+ H Urine RBC 3-5 Urine WBC 5-10 Ur Epithelial Cells Moderate Urine Bacteria Moderate ASSESSMENT/PLAN:
--- NOTE | 2017-08-19 15:59 | PN ---
Progress Note (short form) - Note Progress Note: GI CONSULTATION: PLEASE SEE THE COMPLETE DICTATION IN BRIEF: 81M WITH HTN/DM/SEVERE VASCULAR DISEASE S/P WA/ ICS x 7, S/P CABG x4 ON A/C ADMIT WITH CLINICAL, BIOCHEMICAL, AND RADIOGRAPHIC EVIDENCE OF ACUTE INTERSTITIAL GALLSTONE PANCREATITIS WITHOUT EVIDENCE OF PANCREATIC NECROSIS OR END ORGAN DAMAGE WITH PROBABLE ACUTE CHOLECYSTITIS WITHOUT EVIDENCE OF CHOLANGITIS BUT CANNOT EXCLUDE CBD STONE RECC: AGGRESSIVE IVF HYDRATION/ PAIN RX/ IV ABX F/U LABS/ C-RP/ LFT'S MRCP TO ASSESS THE CBD NON-INVASIVELY WOULD STRONGLY CONSIDER CHOLECYSTECTOMY ONCE PANCREATITIS HAS IMPROVED SIGNIFICANTLY IF PATIENT A CANDIDATE FOR SUCH WOULD CONSIDER D/C ELIQUIS AND IF PATIENT MUST BE ON A/C, THEN WOULD USE A VERY SHORT ACTING AGENT LIKE IV HEPARIN HE MAY WARRANT ERCP AND OR L.C. IN NEAR FUTURE--PENDING PROGRESS AND MRCP FINDINGS HAVE DISCUSSED FINDINGS AND CONCERN WITH SON IN DETAIL AT BEDSIDE THANKS, MD LUKE
[2017-08-19] MEDS ORDERED: HEPARIN NA (PORCINE) 5,000 UNITS/ML 1ML VIAL IVPUSH PRN (16:02)
--- NOTE | 2017-08-19 16:38 | CONS ---
GASTROENTEROLOGY CONSULTATION DATE OF CONSULTATION: 08/19/2017 REASON FOR CONSULTATION: I was asked by Dr. Jensen to evaluate the patient for pancreatitis and cholecystitis. HISTORY OF PRESENT ILLNESS: The patient is an 81-year-old white male who is a very poor informant. His son is at the bedside who can elicit some of his medical history, however, he is not apprised to all of his medical history so therefore the history is limited and is aided by the EMR. Apparently the patient was up and about in his usual state of health until Thanksgiving dinner. Yesterday he ate turkey and ham and then at approximately 10:00 p.m. last night he had the onset of severe epigastric pain. He vomited twice. The pain got worse and at 3:00 a.m. he proceeded to [facility]. He was seen by Dr. Sorenson in the [facility] and he underwent examination and blood work testing and was found to have acute pancreatitis. The patient was noted to have significant elevation of his lipase. On imaging he had a CAT scan and sonogram that revealed gallbladder wall thickening, pericholecystic fluid with a distended gallbladder consistent with cholecystitis, and a marked pancreatitis. There was no evidence of pancreatic necrosis or infection. The patient was started on intravenous meropenem and he was transferred to [facility] for admission. The patient states that since he has been here he feels much better. His abdominal pain is much less. It was epigastric and went through to the back. He did not have fevers, chills, or sweats. He did not have change in bowel habits, rectal bleeding, or tarry stools. He has not had recent gastrointestinal issues he reports although there is prior history of inflammatory bowel disease, but again the details of such are unclear. The patient also has underlying hypertension, diabetes, significant vascular disease, and atherosclerotic coronary artery disease and he is status post a CABG x4. He has had TN x3 and he is status post an AAA with repair after rupture and he has over 7 intracoronary stents and remains on chronic anticoagulation. SOCIAL HISTORY: The patient reports that he is a former smoker and he rarely drinks alcohol. ALLERGIES: He has no known drug allergies. MEDICATIONS: He comes in on: 1. Centrum. 2. Crestor. 3. Eliquis. 4. Iron. Currently in the hospital the medications he is receiving includes: 1. Eliquis. 2. Intravenous fluid. 3. Synthroid. 4. He is getting pain medication. 5. He got a dose of meropenem. 6. Narcotic pain medication as well. PHYSICAL EXAMINATION: Vital Signs: Currently he is afebrile. His resting heart rate is around 100 to 104 and his blood pressure is elevated at 149/98. General: On physical examination he is not in acute distress. He is moving about in the bed easily. HEENT: Sclerae are anicteric. Skin: His skin is cool. Abdomen: Not distended. It is flat. He has a large scar that is vertical that corresponds to prior CABG and it is healed. His abdomen is symmetric. Bowel sounds are active. There is tenderness to palpation in the epigastric and certainly in the right upper quadrant region. There is no rebound or guarding. LABORATORY DATA: Notable in that his current INR is 1.2. His white count is 7.4 with a hemoglobin of 15, hematocrit of 45, and he has 159,000 platelets. His chemistries reveal a sodium of 139, potassium of 4.7, chloride of 105, bicarbonate of 28, and BUN of 30. Now interestingly his AST is 431 with an ALT of 293 and an alkaline phosphatase of 150 and his bilirubin is 0.8. His lipase is 9000 and his albumin is 4.1. His total protein is 7.9. The reports of the scans are noted. He had a CT scan of the abdomen and pelvis that was performed at [facility] that noted a hydrops gallbladder with multiple stones layering in the gallbladder with pericholecystic free fluid and there were nonobstructing renal stones. The patient also is noted to have some inflammatory change of the pancreas. He has diverticulosis without evidence of diverticulitis. The previous visualized abdominal aortic aneurysm is noted with stent into the right and left common iliac artery. He has DJD of the spine and again stones were definitely seen in the gallbladder. In addition, he had a sonogram of the abdomen that also noted a distended gallbladder with multiple stones layering with pericholecystic fluid, a sonographic positive Desir sign, and there was no evidence of any biliary ductal dilatation. IMPRESSION: So it is my impression that the patient is an 81-year-old man with hypertension, diabetes, and severe vascular disease, atherosclerotic coronary artery disease status post multiple myocardial infarctions, status post coronary artery bypass grafting x4, status post 7 intracoronary stents, who also has had an abdominal aortic aneurysm with repair and remains on chronic anticoagulation with Eliquis, who comes in with clinical, biochemical, and radiographic evidence of acute gallstone pancreatitis without evidence of pancreatic necrosis or end-organ damage. He also has evidence of what likely appears to be acute cholecystitis. There is no evidence of cholangitis. At this time I agree as you are doing with aggressive intravenous fluid hydration for management of acute pancreatitis, as well as pain medication. He needs to be on intravenous antibiotics. He should be pancultured. He needs to be followed up closely by Surgery, and his labs need to be followed up as well. The family will discuss possible cholecystectomy once the pancreatitis is clinically improved. For now I would keep him nothing by mouth and under close observation. We will continue to be available to aid in the management of this patient. MARY KAY BUTLER M.D. JENNIFER/[id number]
[2017-08-19] MEDS: SODIUM CHLORIDE 1,000 ML IV SCH ×2 (16:41→23:00)
[2017-08-19] MEDS ORDERED: HEPARIN NA (PORCINE) 5,000 UNITS/ML 1ML VIAL SQ SCH (18:00)
[2017-08-19] MEDS ORDERED: PT OWN MED DRAWER 7, Y5N ONE (18:26)
[2017-08-19] MEDS ORDERED: LACTATED RINGERS SOLUTION 1000 ML INFUS.BAG IV ONE (18:30)
[2017-08-19] MEDS ORDERED: LACTATED RINGERS SOLUTION 1,000 ML IV SCH (18:30)
[2017-08-19 18:45] LABS: ALBUMIN 3.3 g/dl (3.4-5.0); BILIRUBIN,DIRECT 0.2 mg/dL (0.0-0.2); BILIRUBIN,TOTAL 0.7 mg/dL (0.2-1.0); TOT PROT 6.9 g/dl (6.4-8.2)
[2017-08-19] MEDS: IMIPENEM/CILASTATIN SODIUM 500 MG in DEXTROSE 5%-WATER - 100 ML IVPB SCH (20:12)
[2017-08-19] MEDS: HEPARIN - 25,000 UNIT in SODIUM CHLORIDE 495 ML IV SCH ×2 (20:53→21:02)
[2017-08-19] MEDS: HEPARIN NA (PORCINE) 5,000 UNITS/ML 1ML VIAL IVPUSH PRN (21:02)
[2017-08-19 21:29] LABS: URINE APPEARANCE SL CLOUDY; URINE BILIRUBIN NEGATIVE (NEGATIVE); URINE COLOR YELLOW; URINE GLUCOSE (UA) NEGATIVE (NEGATIVE); URINE KETONE TRACE (NEGATIVE)
[2017-08-19 21:30] LABS: URINE BLOOD NEGATIVE (NEGATIVE); URINE NITRITE NEGATIVE (NEGATIVE); URINE PROTEIN 1+ (NEGATIVE); URINE UROBILINOGEN NORMAL (0.2-1.0)
[2017-08-19 21:35] LABS: URINE MUCUS RARE; URINE WBC 16 (0-2)
[2017-08-19] MEDS ORDERED: APIXABAN 2.5 MG TABLET PO SCH (22:00)
[2017-08-20] MEDS ORDERED: PT OWN MED DRAWER 7, Y5N ONE ×3 (03:26→17:10)
[2017-08-20] MEDS: IMIPENEM/CILASTATIN SODIUM 500 MG in DEXTROSE 5%-WATER - 100 ML IVPB SCH ×3 (03:29→17:12)
[2017-08-20] MEDS: HEPARIN - 25,000 UNIT in SODIUM CHLORIDE 495 ML IV SCH ×3 (04:06→23:41)
[2017-08-20] MEDS: LEVOTHYROXINE NA 25 MCG TABLET (FP) PO SCH (06:20)
[2017-08-20] MEDS ORDERED: HYDROmorphone HCL CARPU-JECT 1 MG/1 ML DISP.SYRIN IVPB ONE (06:27)
[2017-08-20 08:20] LABS: MCH 28.2 pg (25.7-33.7); MCHC 32.3 g/dl (32.0-35.9); MEAN CELL VOLUME 87.3 fl (80-96); PLATELET COUNT 145 K/MM3 (134-434); WHITE BLOOD COUNT 8.1 K/mm3 (4.0-10.8)
[2017-08-20 08:21] LABS: BASOPHIL 0.4 % (0-2.0); EOSINOPHIL 0.4 % (0-4.5); MEAN PLT VOLUME 9.1 fl (7.5-11.1); NEUTROPHILS 80.9 % (42.8-82.8)
[2017-08-20 08:32] LABS: INR 1.3 (0.82-1.09); PROTHROMBIN TIME (PATIENT) 14.7 SEC (10.2-13.0)
--- NOTE | 2017-08-20 08:34 | PN ---
Progress Note, Physician Chief Complaint: abdominal pain RUQ History of Present Illness: 81 yo male PMH HTN, DM, HLD, IBD ulcerative colitis, CAD s/p CABGX4, previous PA X3 first in 1994, s/p AAA s/p open repair, 7 stents on Eliquis, chronic systolic and diastolic heart failure. Reports interval improvement of the abdominal pain. he currently rates it 3/10 and its in the RUQ. He had an MRCP yesterday, was also seen by cardiology, he has been afebrile overnight, tmax 99.2 - Current Medication List Current Medications: Active Medications Heparin Sodium (Porcine) (Heparin -) 1,000 unit IVPUSH PRN PRN PRN Reason: Heparin Heparin Sodium (Porcine) (Heparin -) 5,000 unit IVPUSH PRN PRN PRN Reason: Heparin Last Admin: 08/19/17 21:02 Dose: 5,000 unit Sodium Chloride (Normal Saline -) 1,000 mls @ 100 mls/hr IV ASDIR GREGORIO Last Admin: 08/19/17 23:00 Dose: 100 mls/hr Imipenem/Cilastatin Sodium 500 (mg/ Dextrose) 100 mls @ 200 mls/hr IVPB Q8H-IV GREGORIO Last Admin: 08/20/17 03:29 Dose: 200 mls/hr Heparin Sodium (Porcine) 25, (000 unit/ Sodium Chloride) 500 mls @ 16 mls/hr IV TITR GREGORIO; 800 UNIT/HR PRN Reason: Protocol Last Admin: 08/20/17 04:06 Dose: 950 unit/hr, 19 mls/hr Lactated Ringer's (Lactated Ringers Solution) 1,000 mls @ 500 mls/hr IV ASDIR GREGORIO Last Admin: 08/19/17 20:12 Dose: 500 mls/hr Levothyroxine Sodium (Synthroid -) 25 mcg PO AM GREGORIO Last Admin: 08/20/17 06:20 Dose: 25 mcg - Objective Vital Signs: Vital Signs Temperature 98.5 F 08/20/17 08:00 Pulse Rate 97 H 08/20/17 08:00 Respiratory Rate 18 08/20/17 08:00 Blood Pressure 133/93 08/20/17 08:00 O2 Sat by Pulse Oximetry (%) 97 08/19/17 21:00 Vital Signs Period Temp Pulse Resp BP Sys/Dumont Pulse Ox Last 24 Hr 97.9 F-99.2 F 97-116 18-18 127-150/82-93 97-98 Constitutional: Yes: Well Nourished, No Distress, Calm Eyes: Yes: Conjunctiva Clear, EOM Intact HENT: Yes: Atraumatic, Normocephalic Neck: Yes: Supple, Trachea Midline Cardiovascular: Yes: Regular Rate and Rhythm, Murmur, S1, S2 Respiratory: Yes: Regular, CTA Bilaterally Gastrointestinal: Yes: Normal Bowel Sounds, Soft, Tenderness (tender RUQ, - newsome's no inspiratory arrest). No: Ascites, Hernia, Tenderness, Epigastrium, Tenderness, Rebound Edema: No Peripheral Pulses WNL: Yes Peripheral Pulses: Left Radial: 2+, Right Radial: 2+, Left Doralis Pedis: 2+, Right Dorsalis Pedis: 2+ Wound/Incision: Yes: Other (well healed midline laparotomy and median sternotomy with xiphoid postion excavtion) Neurological: Yes: Alert, Oriented Psychiatric: Yes: Alert, Oriented Labs: CBC, BMP 08/20/17 07:00 INR, PTT INR 1.30 (0.82-1.09) H 08/20/17 07:00 Intake & Output 08/19/17 08/20/17 08/20/17 23:59 07:59 15:59 Intake Total 50 1257 Output Total 150 400 Balance 50 1107 -400 Weight 144 lb 8 oz Intake: IV 1257 Heparin - 25,000 Unit In 57 Normal Saline - 495 ml @ 800 UNIT/HR 16 mls/hr IV TITR GREGORIO Rx#:[id number] saline lock 1200 IVPB 50 Output: Urine 150 400 Void 150 400 Other: Voiding Method Urinal Urinal # Unmeasured Voids Void 1 Bowel Movement No Weight Measurement Method Built in [facility] Abnormal Lab Results 08/19/17 08/19/17 08/19/17 16:45 18:30 19:00 PT with INR INR PTT (Actin FS) 35.5 H Chloride BUN Random Glucose Calcium Phosphorus AST 127 H D ALT 183 H D Alkaline Phosphatase 129 H Albumin 3.3 L Urine Protein 1+ H Urine Ketones Trace H 08/20/17 08/20/17 08/20/17 03:00 07:00 07:00 PT with INR 14.7 H INR 1.30 H PTT (Actin FS) 53.5 H D Chloride 108 H BUN 21 H D Random Glucose 119 H D Calcium 8.0 L Phosphorus 2.3 L AST 57 H D ALT 122 H D Alkaline Phosphatase Albumin 3.0 L Urine Protein Urine Ketones - ....Imaging MRI: Report Reviewed, Image Reviewed (calculous cholecystitis with out other hepatobiliary diliatation or obstruction) Problem List - Problems (1) Acute gallstone pancreatitis Assessment/Plan: 81yo male with significant cardiac history presents with acute gallstone pancreatitis and cholecystitis. He is improving clinically but remains in guarded condition. He has Tmax 99.2. Yesterday surgery was discussed with the patient and his family. He was assessed by cardiology, MRCP showed only findings consistent with acute cholecystitis. continue NPO and IVF hydration Trend labs ordered for AM continue IV antibiotics per ID appreciate Cardiology assessment Will discuss possible surgery with family when they arrive, Anticipating and Laparoscopic cholecystecomy during this admission (early- mid next week) we will continue to follow Code(s): K85.10 - BILIARY ACUTE PANCREATITIS WITHOUT NECROSIS OR INFECTION (2) Pancreatitis Assessment/Plan: Admit to medicine NPO and IVF hydration Trend labs (lipase >9000) Medical optimization in anticipation of Cholecystetcomy Code(s): K85.90 - ACUTE PANCREATITIS WITHOUT NECROSIS OR INFECTION, UNSP Qualifiers: Chronicity: acute Pancreatitis type: biliary Acute pancreatitis complication: unspecified Qualified Code(s): K85.10 - Biliary acute pancreatitis without necrosis or infection (3) Coronary arteriosclerosis Code(s): I25.10 - ATHSCL HEART DISEASE OF [place] CORONARY ARTERY W/O ANG PCTRS (4) Diabetes Code(s): E11.9 - TYPE 2 DIABETES MELLITUS WITHOUT COMPLICATIONS Qualifiers: Diabetes mellitus type: type 2 (5) Hyperlipidemia Code(s): E78.5 - HYPERLIPIDEMIA, UNSPECIFIED
[2017-08-20 10:01] LABS: GLUCOSE,RANDOM 119 mg/dL (74-106)
[2017-08-20 10:02] LABS: ANION GAP 8 (8-16); CO2 25 mmol/L (21-32); CREATININE 1.1 mg/dL (0.7-1.3); MAGNESIUM 1.8 mg/dL (1.8-2.4); PHOSPHOROUS 2.3 mg/dL (2.5-4.9)
[2017-08-20 10:03] LABS: ALK PHOS 116 U/L (45-117); BILIRUBIN,TOTAL 0.2 mg/dL (0.2-1.0); SGOT/AST 57 U/L (15-37); SGPT/ALT 122 U/L (12-78); TOT PROT 6.4 g/dl (6.4-8.2)
--- NOTE | 2017-08-20 10:20 | PN ---
Progress Note (short form) - Note Progress Note: Subjective: The patient was seen and examined at the bedside, he reports he is only having pain in his abdomen when he coughs Lipase [id number] Current Medications Generic Name Dose Route Start Last Admin Trade Name Freq PRN Reason Stop Dose Admin Heparin Sodium (Porcine) 1,000 unit 08/19/17 16:02 Heparin - IVPUSH PRN PRN Heparin Heparin Sodium (Porcine) 5,000 unit 08/19/17 16:02 08/19/17 21:02 Heparin - IVPUSH 5,000 unit PRN PRN Administration Heparin Sodium Chloride 1,000 mls @ 100 mls/hr 08/19/17 15:45 08/19/17 23:00 Normal Saline - IV 100 mls/hr ASDIR GREGORIO Administration Imipenem/Cilastatin Sodium 500 100 mls @ 200 mls/hr 08/19/17 16:15 08/20/17 09:37 mg/ Dextrose IVPB 200 mls/hr Q8H-IV GREGORIO Administration Heparin Sodium (Porcine) 25, 500 mls @ 16 mls/hr 08/19/17 16:15 08/20/17 04: 06 000 unit/ Sodium Chloride IV 950 unit/hr TITR GREGORIO 19 mls/hr Protocol Administration 800 UNIT/HR Levothyroxine Sodium 25 mcg 08/20/17 07:00 08/20/17 06:20 Synthroid - PO 25 mcg AM GREGORIO Administration Objective: Vital Signs Period Temp Pulse Resp BP Sys/Dumont Pulse Ox Last 24 Hr 97.9 F-99.2 F 97-116 18-20 127-150/82-98 97-98 Physical Exam: General: NAD, A&Ox3 Lungs: CTA bilaterally Heart: RRR, S1S2 Abd: Soft, non-tender, non-distended. Normoactive bowel sounds Ext: Warm, well-perfused. 2+ DP/PT bilaterally Neuro: CN 2-12 intact CBCD WBC 8.1 K/mm3 (4.0-10.8) 08/20/17 07:00 RBC 4.92 M/mm3 (4.00-5.60) 08/20/17 07:00 Hgb 13.9 GM/dl (11.7-16.9) D 08/20/17 07:00 Hct 43.0 % (35.4-49) D 08/20/17 07:00 MCV 87.3 fl (80-96) 08/20/17 07:00 MCHC 32.3 g/dl (32.0-35.9) 08/20/17 07:00 RDW 14.0 % (11.9-15.9) D 08/20/17 07:00 Plt Count 145 K/MM3 (134-434) D 08/20/17 07:00 MPV 9.1 fl (7.5-11.1) 08/20/17 07:00 CMP Sodium 141 mmol/L (136-145) 08/20/17 07:00 Potassium 4.2 mmol/L (3.5-5.1) 08/20/17 07:00 Chloride 108 mmol/L (98-107) H 08/20/17 07:00 Carbon Dioxide 25 mmol/L (21-32) 08/20/17 07:00 Anion Gap 8 (8-16) 08/20/17 07:00 BUN 21 mg/dL (7-18) H D 08/20/17 07:00 Creatinine 1.1 mg/dL (0.7-1.3) D 08/20/17 07:00 Creat Clearance w eGFR > 60 (>60) 08/20/17 07:00 Random Glucose 119 mg/dL (74-106) H D 08/20/17 07:00 Calcium 8.0 mg/dL (8.5-10.1) L 08/20/17 07:00 Total Bilirubin 0.2 mg/dL (0.2-1.0) D 08/20/17 07:00 AST 57 U/L (15-37) H D 08/20/17 07:00 ALT 122 U/L (12-78) H D 08/20/17 07:00 Alkaline Phosphatase 116 U/L (45-117) 08/20/17 07:00 Total Protein 6.4 g/dl (6.4-8.2) 08/20/17 07:00 Albumin 3.0 g/dl (3.4-5.0) L 08/20/17 07:00 CARDIAC ENZYMES Creatine Kinase 115 IU/L (39-308) 08/19/17 04:41 Troponin I < 0.02 ng/ml (0.00-0.05) 08/19/17 04:41 Imaging: CTAP: overdistended hydrops GB, layering stones, suggestion of free fluid Abd US: mild anterior free fluid and edema; significant 12mm wall thickening and edema anterior wall; layering stones Assessment: This is a 79 year old male with PMHx of HTN, hypothyroidism, hyperlipidemia, CAD s/p [place] x3 s/p CABG and stents x7, chronic systolic and diastolic heart failure, AAA, inflammatory bowel disease/ulcerative colitis, who presented to the ED with epigastric pain, nausea, vomiting after Thanksgiving dinner. Plan: 1) Acute gallstone pancreatitis - Elevated Lipase now WNL after aggressive IV hydration - WBC wnl - Remains afebrile - MRCP with acute calculus cholecystitis. No biliary tract dilatation. No evidence of choledocholithiasis. Small amount of perihepatic free fluid seen. 0.6cm pancreatic head cyst, correlate in 6 months with MRCP. B/l nephrolithiasis - Continue Meropenem - NPO - Appreciate ID consult - Appreciate GI consult - Appreciate surgery consult 2) CAD s/p [place] x3 s/p CABG and stents x7 - Home eliquis held - Continue Heparin gtt Chronic systolic and diastolic heart failure - No evidence of overload or acute exacerbation at this time - Patient denies any shortness of breath - Continue to monitor closely as the patient has received aggressive IV hydration 3) IDDM? - No insulin on home medication list, however with hyperglycemia here - F/u HgbA1c - BGM q6h - ISS q6h 4) F/E/N: - IV fluids - Monitor electrolytes - NPO 5) Prophylaxis: - On heparin gtt - OOB with assistance 6) Dispo: - Requires continued inpatient care CODE STATUS: FULL CODE Visit type - Emergency Visit Emergency Visit: Yes ED Registration Date: 08/19/17 Care time: The patient presented to the Emergency Department on the above date and was hospitalized for further evaluation of their emergent condition. - New Patient This patient is new to me today: Yes Date on this admission: 08/20/17 - Critical Care Critical Care patient: No
[2017-08-20] MEDS: INSULIN (NOVOLOG) ASPART 100 UNITS/ML 10ML VIAL SQ SCH ×3 (11:29→22:11)
--- NOTE | 2017-08-20 11:29 | CONSULT ---
Consult - text type - Consultation Consultation Note: Cardiology 79 year-old male with a PMH significant for HTN, HLD, CAD s/p [place] x3 s/p CABG s/ p stents x 7 (on Eliquis), chronic systolic and diastolic heart failure, AAA s/ p surgical repair (04/2012), IDDM, and inflammatory bowel disesase/ulcerative colitis. Presented to the ED with epigastric pain, nausea and vomiting following Thanksgiving dinner. Denies nay cardiac symptoms. PE: vitals stable normal cardio-pulmonary exam abdomen soft no leg edema EKG NSR, ST-T Impression: CABG 2013; Stable compensated CHF; ? on Eliqiuis, NSR stable from cardiac standpoint moderate courtney-op cardiac risk can proceed for surgery, if need be No specific courtney-op cardiac recommendations. Hold Eliquis, till we investigate further
[2017-08-20] MEDS: SODIUM CHLORIDE 1,000 ML IV SCH ×3 (13:30→23:47)
--- NOTE | 2017-08-20 14:02 | PN ---
GI Progress Note Subjective: GI F/U NOTE PT FEELS MUCH BETTER TODAY NO N/V/F/C/S MINIMAL UMBILICAL PAIN FEELS THIRSTY PASSING GAS NO BM NO RECTAL BLEEDING OVERALL FEELS MUCH BETTER - Objective Vital Signs: Vital Signs Temperature 98.5 F 08/20/17 08:00 Pulse Rate 97 H 08/20/17 08:00 Respiratory Rate 18 08/20/17 08:00 Blood Pressure 133/93 08/20/17 08:00 O2 Sat by Pulse Oximetry (%) 98 08/20/17 09:00 Constitutional: Well Nourished, No Distress, Calm Eyes: Yes: WNL (+BS/FLAT/ SOFT/ MINIMALLY TENDER TO PALPATION IN THE EPIGASTRIC/ UMBILICAL REGION NO REBOUND OR GUARDING) Labs: CBC, BMP 08/20/17 07:00 08/20/17 07:00 INR, PTT INR 1.30 (0.82-1.09) H 08/20/17 07:00 Assessment/Plan 81M WITH GALLSTONE PANCREATITIS CLINICALLY AND BIOCHEMICALLY IMPROVED NO END ORGAN DAMAGE, NO NECROSIS AND ENZYMES MUCH IMPROVED NO EVIDENCE OF CHOLANGITIS OR CBD DISEASE PER LFT'S IMPROVING AND MRCP EXAM PROBABLE CHOLECYSTITIS WELL AND PT ON ABX AND APPEARS NON-TOXIC AGREE WITH L.C. ONCE PATIENT IS CARDIAC CLEARED AND AGREEABLE TO PROCEDURE FOR NOW, CONTIONUE CURRENT RX AND START CLEARS PO AND ADVANCE DIET TOLERATED F/U LFT'S/ WBC MD LUKE
--- NOTE | 2017-08-20 14:50 | PN ---
Progress Note, Physician Chief Complaint: ID f/u note: History of Present Illness: Pt seen and examined, chart reviewed, labs and imaging results noted. This is a 79 year-old male with a PMH of HTN, HLD, CAD s/p [place] x3, s/p CABG s/p stents, AAA s/p repair, IDDM, and IBD presenting with c/o RUQ pain, nausea and vomiting that began [address] results indicates acute cholecystitis/hydrops GB/ pancreatitis. Pt is on IV antibiotics and states he feels "better" but pain in RUQ abdomen. Denies fever/chills/nausea or vomiting at this time. - Current Medication List Current Medications: Active Medications Heparin Sodium (Porcine) (Heparin -) 1,000 unit IVPUSH PRN PRN PRN Reason: Heparin Heparin Sodium (Porcine) (Heparin -) 5,000 unit IVPUSH PRN PRN PRN Reason: Heparin Last Admin: 08/19/17 21:02 Dose: 5,000 unit Sodium Chloride (Normal Saline -) 1,000 mls @ 100 mls/hr IV ASDIR GREGORIO Last Admin: 08/20/17 13:30 Dose: 100 mls/hr Imipenem/Cilastatin Sodium 500 (mg/ Dextrose) 100 mls @ 200 mls/hr IVPB Q8H-IV GREGORIO Last Admin: 08/20/17 09:37 Dose: 200 mls/hr Heparin Sodium (Porcine) 25, (000 unit/ Sodium Chloride) 500 mls @ 16 mls/hr IV TITR GREGORIO; 800 UNIT/HR PRN Reason: Protocol Last Admin: 08/20/17 04:06 Dose: 950 unit/hr, 19 mls/hr Insulin Aspart (Novolog Vial) 0 units SQ Q6H GREGORIO PRN Reason: Protocol Last Admin: 08/20/17 11:29 Dose: Not Given Levothyroxine Sodium (Synthroid -) 25 mcg PO AM GREGORIO Last Admin: 08/20/17 06:20 Dose: 25 mcg - Objective Vital Signs: Vital Signs Temperature 99 F 08/20/17 13:58 Pulse Rate 105 H 08/20/17 13:58 Respiratory Rate 18 08/20/17 13:58 Blood Pressure 152/90 08/20/17 13:58 O2 Sat by Pulse Oximetry (%) 98 08/20/17 09:00 Constitutional: Yes: No Distress, Calm HENT: Yes: WNL Neck: Yes: Supple Cardiovascular: Yes: Tachycardia Respiratory: Yes: CTA Bilaterally Gastrointestinal: Yes: Normal Bowel Sounds, Soft, Tenderness (RUQ pain 7/10 intensity with deep palpation) Genitourinary: Yes: WNL Musculoskeletal: Yes: WNL Extremities: Yes: WNL Neurological: Yes: Alert, Oriented Labs: CBC, BMP 08/20/17 07:00 08/20/17 07:00 INR, PTT INR 1.30 (0.82-1.09) H 08/20/17 07:00 - ....Imaging Cat Scan: Report Reviewed Ultrasound: Report Reviewed Problem List - Problems (1) Acute gallstone pancreatitis Code(s): K85.10 - BILIARY ACUTE PANCREATITIS WITHOUT NECROSIS OR INFECTION (2) Cholecystitis Code(s): K81.9 - CHOLECYSTITIS, UNSPECIFIED (3) Hyperlipidemia Code(s): E78.5 - HYPERLIPIDEMIA, UNSPECIFIED (4) Hypertension Code(s): I10 - ESSENTIAL (PRIMARY) HYPERTENSION Assessment/Plan - patient feeling better - LFTs decreasing, afebrile - continue current antibiotics - plan is for surgical management continue monitor
--- NOTE | 2017-08-20 16:30 | EKG ---
Test Reason : Blood Pressure : / mmHG Vent. Rate : 096 BPM Atrial Rate : 096 BPM P-R Int : 132 ms QRS Dur : 098 ms QT Int : 360 ms P-R-T Axes : 060 001 066 degrees QTc Int : 454 ms NORMAL SINUS RHYTHM POSSIBLE LEFT ATRIAL ENLARGEMENT CANNOT RULE OUT INFERIOR INFARCT NONSPECIFIC T WAVE ABNORMALITY ABNORMAL ECG NO PREVIOUS ECGS AVAILABLE Confirmed by PRINCE MARTINEZ MD ([id number] on 08/20/2017 4:29:49 PM Referred By: BRENDA NASCIMENTO Confirmed By:PRINCE MARTINEZ MD
[2017-08-21] MEDS ORDERED: PT OWN MED DRAWER 7, Y5N ONE ×2 (00:50→17:01)
[2017-08-21] MEDS: IMIPENEM/CILASTATIN SODIUM 500 MG in DEXTROSE 5%-WATER - 100 ML IVPB SCH ×3 (02:32→17:02)
[2017-08-21] MEDS ORDERED: morphine SULFATE 4 MG/ML VIAL IVPUSH ONE (04:18)
[2017-08-21] MEDS: INSULIN (NOVOLOG) ASPART 100 UNITS/ML 10ML VIAL SQ SCH ×4 (05:32→21:50)
[2017-08-21] MEDS: LEVOTHYROXINE NA 25 MCG TABLET (FP) PO SCH (06:00)
[2017-08-21 07:53] LABS: MCH 28.4 pg (25.7-33.7); MCHC 33.1 g/dl (32.0-35.9); MEAN CELL VOLUME 85.6 fl (80-96); PLATELET COUNT 136 K/MM3 (134-434); RDW 13.2 % (11.9-15.9); WHITE BLOOD COUNT 7.8 K/mm3 (4.0-10.8)
[2017-08-21] MEDS: HEPARIN NA (PORCINE) 5,000 UNITS/ML 1ML VIAL IVPUSH PRN (08:29)
[2017-08-21 08:45] LABS: ALBUMIN 2.6 g/dl (3.4-5.0); ALK PHOS 99 U/L (45-117); ANION GAP 9 (8-16); CALCIUM 7.9 mg/dL (8.5-10.1); CO2 23 mmol/L (21-32); GLUCOSE,RANDOM 95 mg/dL (74-106); PHOSPHOROUS 2.1 mg/dL (2.5-4.9); SGOT/AST 28 U/L (15-37); SGPT/ALT 69 U/L (12-78); TOT PROT 5.9 g/dl (6.4-8.2)
[2017-08-21] MEDS: SODIUM CHLORIDE 1,000 ML IV SCH ×2 (10:42→21:58)
--- NOTE | 2017-08-21 11:35 | PN ---
Physical Exam: SUBJECTIVE: Patient seen and examined. OBJECTIVE: Vital Signs Period Temp Pulse Resp BP Sys/Dumont Pulse Ox Last 24 Hr 98.1 F-99.4 F 100-105 18-20 133-152/70-90 98 GENERAL: The patient is awake, alert, and fully oriented, in no acute distress. LUNGS: Breath sounds equal, clear to auscultation bilaterally, no wheezes, no crackles, no accessory muscle use. HEART: Regular rate and rhythm, S1, S2 without murmur, rub or gallop. ABDOMEN: Soft, nondistended, normoactive bowel sounds, no guarding, no rebound, no hepatosplenomegaly, no masses. Tender to RUQ. EXTREMITIES: 2+ pulses, warm, well-perfused, no edema. NEUROLOGICAL: Cranial nerves II through XII grossly intact. Normal speech, gait not observed. PSYCH: Normal mood, normal affect. Laboratory Results - last 24 hr 08/20/17 08/20/17 08/20/17 07:00 11:28 16:32 WBC RBC Hgb Hct MCV MCH MCHC RDW Plt Count MPV Manual Slide Review PTT (Actin FS) Sodium Potassium Chloride Carbon Dioxide Anion Gap BUN Creatinine Creat Clearance w eGFR POC Glucometer 100 106 Random Glucose Hemoglobin A1c % 6.5 H D Calcium Phosphorus Total Bilirubin AST ALT Alkaline Phosphatase Total Protein Albumin 08/20/17 08/21/17 08/21/17 21:04 05:28 06:20 WBC 7.8 RBC 4.57 Hgb 12.9 Hct 39.1 MCV 85.6 MCH 28.4 MCHC 33.1 RDW 13.2 Plt Count 136 MPV 9.0 Manual Slide Review No Result Required. PTT (Actin FS) Sodium Potassium Chloride Carbon Dioxide Anion Gap BUN Creatinine Creat Clearance w eGFR POC Glucometer 101 108 Random Glucose Hemoglobin A1c % Calcium Phosphorus Total Bilirubin AST ALT Alkaline Phosphatase Total Protein Albumin 08/21/17 08/21/17 06:20 06:20 WBC RBC Hgb Hct MCV MCH MCHC RDW Plt Count MPV Manual Slide Review PTT (Actin FS) 38.8 H Sodium 138 Potassium 3.7 Chloride 106 Carbon Dioxide 23 Anion Gap 9 BUN 15 D Creatinine 1.0 Creat Clearance w eGFR > 60 POC Glucometer Random Glucose 95 D Hemoglobin A1c % Calcium 7.9 L Phosphorus 2.1 L Total Bilirubin 1.0 D AST 28 D ALT 69 D Alkaline Phosphatase 99 Total Protein 5.9 L Albumin 2.6 L Active Medications Generic Name Dose Route Start Last Admin Trade Name Freq PRN Reason Stop Dose Admin Heparin Sodium (Porcine) 1,000 unit 08/19/17 16:02 Heparin - IVPUSH PRN PRN Heparin Heparin Sodium (Porcine) 5,000 unit 08/19/17 16:02 08/21/17 08:29 Heparin - IVPUSH 5,000 unit PRN PRN Administration Heparin Sodium Chloride 1,000 mls @ 100 mls/hr 08/19/17 15:45 08/21/17 10:42 Normal Saline - IV 100 mls/hr ASDIR GREGORIO Administration Imipenem/Cilastatin Sodium 500 100 mls @ 200 mls/hr 08/19/17 16:15 08/21/17 10:40 mg/ Dextrose IVPB 200 mls/hr Q8H-IV GREGORIO Administration Heparin Sodium (Porcine) 25, 500 mls @ 16 mls/hr 08/19/17 16:15 08/21/17 08: 29 000 unit/ Sodium Chloride IV 1,100 unit/hr TITR GREGORIO 22 mls/hr Protocol Titration 800 UNIT/HR Insulin Aspart 0 units 08/20/17 10:45 08/21/17 05:32 Novolog Vial SQ Not Given Q6H GREGORIO Protocol Levothyroxine Sodium 25 mcg 08/20/17 07:00 08/21/17 06:00 Synthroid - PO 25 mcg AM GREGORIO Administration Imaging: ABDOMEN MRI (without contrast) / MRCP Clinical information: acute gallstone pancreatitis Multiplanar, multisequence imaging was performed including fat suppressed heavily T2-weighted fast spin-echo pulse sequences with cholangiographic and tomographic technique. As noted on sonography and CT also performed on 08/19/2017 several small gallbladder calculi visualized. The gallbladder is overdistended with associated pericholecystic fluid accumulation and pericholecystic soft tissue edema consistent with evidence of acute cholecystitis. A small amount of perihepatic free fluid is also seen. There is also a small small amount of fluid within the partially imaged lower pelvis. No intrahepatic or extrahepatic biliary tract dilatation is identified. The common bile duct diameter is 0.3 cm. There is no discrete intraductal calculus. No dilatation of the main pancreatic duct is noted. A 0.6 cm cyst is seen within the pancreatic head. There is no definite MRI evidence of acute pancreatitis. Mild acute pancreatitis may not be demonstrable on MRI or CT. Several bilateral renal hypointense foci are noted consistent with nonobstructing calculi which are much better visualized on recently performed CT. Urology consultation is suggested. The liver, spleen, and adrenal glands demonstrate no discrete noncontrast pathology. Status post aortic endovascular aortic aneurysm repair ( much better visualized on CT). No obvious lymphadenopathy is noted. IMPRESSION: Acute calculus cholecystitis is identified. No biliary tract dilatation is seen. There is no MRCP evidence of choledocholithiasis (sensitivity 90%). A small amount of perihepatic free fluid is seen. There is also visualization of a small amount of free fluid within the partially imaged lower pelvis. A 0.6 cm pancreatic head cyst is noted. Correlation with 6 month follow-up MRI/MRCP is suggested. Bilateral nephrolithiasis. Reported By: Nathaniel High MD 08/20/17 0013 ASSESSMENT/PLAN: A: 81 yo man with PMHx AAA repair (04/2012), IDDM, HTN, HLD, CAD, MIx3, CABG s/p stent x7, chronic systolic/diastolic heart failure, inflammatory bowel disease/ UC with resolved gallstone pancreatitis. Case d/w surgery to f/u as outpatient as patient is refusing at this time. P: Gallstone pancreatitis - resolved as evidenced by lipase and WBC - MRCP as above - advance diet to clears - GI following - Surgery following - ID following Cholecystitis - Appreciate Surgery - Patient verbalized unwillingness to have surgery at this time - Continue Primaxin - ID appreciated CAD s/p [place] x3 s/p CABG and stents x7 - Home eliquis held - Continue Heparin gtt Chronic systolic and diastolic heart failure - No evidence of overload or acute exacerbation at this time - Patient denies any shortness of breath/abdominal bloating/edema - Continue to monitor closely given aggressive IV hydration IDDM? - well controlled - HgbA1c- 6.5 - BGM q6h - ISS q6h F/E/N - IV fluids - Monitor electrolytes - advance diet to clears PPX - On heparin gtt- will transition to Eliquis 08/22 - OOB Dispo- requires inpatient treatment with likely d/c in 24-48 hours with surgical f/u in 1 month. CODE STATUS: FULL CODE Visit type - Emergency Visit Emergency Visit: Yes ED Registration Date: 08/19/17 Care time: The patient presented to the Emergency Department on the above date and was hospitalized for further evaluation of their emergent condition. - New Patient This patient is new to me today: Yes Date on this admission: 08/21/17 - Critical Care Critical Care patient: No
--- NOTE | 2017-08-21 15:17 | PN ---
GI Progress Note Subjective: GI F/U NOTE: PT STATES THAT HE FEELS MUCH BETTER ON CLEARS NO PROBLEMS NO N/V/F/C/S PAIN RESOLVED FEELS GOOD AND WOULD LIKE TO GO HOME HE AND FAMILY WISH TO HAVE SURGERY IN 3-4 WEEKS OUTPATIENT THEY REPORT THAT THEY HAVE D/W SURGEON IN DETAIL PLAN FOR DEFINITIVE GB RESECTION - Objective Vital Signs: Vital Signs Temperature 98.7 F 08/21/17 14:08 Pulse Rate 95 H 08/21/17 14:08 Respiratory Rate 18 08/21/17 14:08 Blood Pressure 137/87 08/21/17 14:08 O2 Sat by Pulse Oximetry (%) 98 08/20/17 20:31 Constitutional: Well Nourished, No Distress, Calm Eyes: Yes: WNL (FLAT/SYMETRIC/ +BS ACTIVE SOFT/NT TO MASSES OR REBOUND MINIOMAL RUQ TENDERNESS) Labs: CBC, BMP 08/21/17 06:20 08/21/17 06:20 INR, PTT INR 1.30 (0.82-1.09) H 08/20/17 07:00 Assessment/Plan 81M WITH GALLSTONE PANCREATITIS CLINICALLY AND BIOCHEMICALLY IMPROVED NO END ORGAN DAMAGE, NO NECROSIS AND ENZYMES MUCH IMPROVED/ NOW LFT'S ARE ALSO ALL IN THE NORMAL RANGE NO EVIDENCE OF CHOLANGITIS OR CBD DISEASE PER LFT'S IMPROVED AND MRCP EXAM PROBABLE CHOLECYSTITIS WELL AND PT ON ABX AND APPEARS NON-TOXIC AGREE WITH L.C. ONCE PATIENT IS CARDIAC CLEARED AND AGREEABLE TO PROCEDURE/ IT APPEARS HE WISHES TO WAIT A FEW WEEKS OUTPATIENT ONCE HE FEELS STRONGER; CONCERN IS THAT PATIENT IS AT RISK OF ANOTHER ATTACK OF GP/ GB ABSCESS/ CBD OBSTRUCTION AND CHOLANGITIS FOR NOW, CONTINUE CURRENT RX, ADVANCE DIET/ OBSERVE PT SHOULD BE CLOSELY MONITORIED ONCE HE IS OFF ABX WOULD NOT D/C PATIENT UNTIL HE HAS EATEN SOLID FOOD WITHOUT PROBLEMS AND IS DOING WELL PLEASE RECALL NEEDED, THANKS, MD LUKE
--- NOTE | 2017-08-21 15:47 | PN ---
Progress Note (short form) - Note Progress Note: Patient seen an examined, pain is greatly improved, tolerating clears, no new complaints Problem List - Problems (1) Acute gallstone pancreatitis Assessment/Plan: 81yo male with significant cardiac history presents with acute gallstone pancreatitis and cholecystitis. He is improving clinically but remains in guarded condition. He has Tmax 99.2. Yesterday surgery was discussed with the patient and his family. He was assessed by cardiology, MRCP showed only findings consistent with acute cholecystitis. advance diet as tolerated IV antibiotics per ID discussed possible considering elective surgery. He would like to be seen by his regular doctor and cardiology prior to making a decision. he was provided with contact information. Code(s): K85.10 - BILIARY ACUTE PANCREATITIS WITHOUT NECROSIS OR INFECTION (2) Pancreatitis Code(s): K85.90 - ACUTE PANCREATITIS WITHOUT NECROSIS OR INFECTION, UNSP Qualifiers: Chronicity: acute Pancreatitis type: biliary Acute pancreatitis complication: unspecified Qualified Code(s): K85.10 - Biliary acute pancreatitis without necrosis or infection (3) Coronary arteriosclerosis Code(s): I25.10 - ATHSCL HEART DISEASE OF [place] CORONARY ARTERY W/O ANG PCTRS (4) Diabetes Code(s): E11.9 - TYPE 2 DIABETES MELLITUS WITHOUT COMPLICATIONS Qualifiers: Diabetes mellitus type: type 2 (5) Hyperlipidemia Code(s): E78.5 - HYPERLIPIDEMIA, UNSPECIFIED
--- NOTE | 2017-08-21 17:47 | PN ---
Progress Note, Physician History of Present Illness: Pt states he feels better. Denies having any acute abd pain/n/v/d. Tmax 99.4F. No other specific complaints. - Current Medication List Current Medications: Active Medications Heparin Sodium (Porcine) (Heparin -) 1,000 unit IVPUSH PRN PRN PRN Reason: Heparin Heparin Sodium (Porcine) (Heparin -) 5,000 unit IVPUSH PRN PRN PRN Reason: Heparin Last Admin: 08/21/17 08:29 Dose: 5,000 unit Sodium Chloride (Normal Saline -) 1,000 mls @ 100 mls/hr IV ASDIR GREGORIO Last Admin: 08/21/17 10:42 Dose: 100 mls/hr Imipenem/Cilastatin Sodium 500 (mg/ Dextrose) 100 mls @ 200 mls/hr IVPB Q8H-IV GREGORIO Last Admin: 08/21/17 17:02 Dose: 200 mls/hr Heparin Sodium (Porcine) 25, (000 unit/ Sodium Chloride) 500 mls @ 16 mls/hr IV TITR GREGORIO; 800 UNIT/HR PRN Reason: Protocol Last Titration: 08/21/17 08:29 Dose: 1,100 unit/hr, 22 mls/hr Insulin Aspart (Novolog Vial) 0 units SQ Q6H GREGORIO PRN Reason: Protocol Last Admin: 08/21/17 16:48 Dose: Not Given Levothyroxine Sodium (Synthroid -) 25 mcg PO AM GREGORIO Last Admin: 08/21/17 06:00 Dose: 25 mcg - Objective Vital Signs: Vital Signs Temperature 98.7 F 08/21/17 14:08 Pulse Rate 95 H 08/21/17 14:08 Respiratory Rate 18 08/21/17 14:08 Blood Pressure 137/87 08/21/17 14:08 O2 Sat by Pulse Oximetry (%) 98 08/21/17 09:00 Constitutional: Yes: No Distress Neck: Yes: Supple Cardiovascular: Yes: Regular Rate and Rhythm Respiratory: Yes: Regular Gastrointestinal: Yes: Normal Bowel Sounds, Soft, Other (no epigastric/RUQ pain , pt on pain medications) Genitourinary: Yes: WNL Musculoskeletal: Yes: WNL Extremities: Yes: WNL Neurological: Yes: Alert, Oriented Labs: CBC, BMP 08/21/17 06:20 08/21/17 06:20 INR, PTT INR 1.30 (0.82-1.09) H 08/20/17 07:00 CMP Sodium 138 mmol/L (136-145) 08/21/17 06:20 Potassium 3.7 mmol/L (3.5-5.1) 08/21/17 06:20 Chloride 106 mmol/L (98-107) 08/21/17 06:20 Carbon Dioxide 23 mmol/L (21-32) 08/21/17 06:20 Anion Gap 9 (8-16) 08/21/17 06:20 BUN 15 mg/dL (7-18) D 08/21/17 06:20 Creatinine 1.0 mg/dL (0.7-1.3) 08/21/17 06:20 Creat Clearance w eGFR > 60 (>60) 08/21/17 06:20 POC Glucometer 105 UNITS (80-120) 08/21/17 16:41 Random Glucose 95 mg/dL (74-106) D 08/21/17 06:20 Hemoglobin A1c % 6.5 % (4.8-6.0) H D 08/20/17 07:00 Calcium 7.9 mg/dL (8.5-10.1) L 08/21/17 06:20 Phosphorus 2.1 mg/dL (2.5-4.9) L 08/21/17 06:20 Magnesium 1.8 mg/dL (1.8-2.4) D 08/20/17 07:00 Total Bilirubin 1.0 mg/dL (0.2-1.0) D 08/21/17 06:20 Direct Bilirubin 0.2 mg/dL (0.0-0.2) 08/19/17 16:45 AST 28 U/L (15-37) D 08/21/17 06:20 ALT 69 U/L (12-78) D 08/21/17 06:20 Alkaline Phosphatase 99 U/L (45-117) 08/21/17 06:20 Creatine Kinase 115 IU/L (39-308) 08/19/17 04:41 Troponin I < 0.02 ng/ml (0.00-0.05) 08/19/17 04:41 Total Protein 5.9 g/dl (6.4-8.2) L 08/21/17 06:20 Albumin 2.6 g/dl (3.4-5.0) L 08/21/17 06:20 Lipase 215 U/L (73-393) 08/20/17 07:00 Problem List - Problems (1) Acute gallstone pancreatitis Code(s): K85.10 - BILIARY ACUTE PANCREATITIS WITHOUT NECROSIS OR INFECTION (2) Cholecystitis Code(s): K81.9 - CHOLECYSTITIS, UNSPECIFIED (3) Hyperlipidemia Code(s): E78.5 - HYPERLIPIDEMIA, UNSPECIFIED (4) Hypertension Code(s): I10 - ESSENTIAL (PRIMARY) HYPERTENSION Assessment/Plan Gallstone Pancreatitis Cholecystitis HTN, HLD, CAD s/p [place] x3, s/p CABG s/p stents, AAA s/p repair, IDDM, and IBD -- Tmax 99.4F, LFTs normalizing -- continue current antibiotic -- continue monitor closely -- if d/c recommend cipro/flagyl po
[2017-08-22] MEDS: HEPARIN - 25,000 UNIT in SODIUM CHLORIDE 495 ML IV SCH (00:24)
[2017-08-22] MEDS ORDERED: PT OWN MED DRAWER 7, Y5N ONE ×3 (01:24→16:56)
[2017-08-22] MEDS: IMIPENEM/CILASTATIN SODIUM 500 MG in DEXTROSE 5%-WATER - 100 ML IVPB SCH ×3 (01:41→17:28)
[2017-08-22] MEDS: LEVOTHYROXINE NA 25 MCG TABLET (FP) PO SCH (06:17)
[2017-08-22] MEDS: INSULIN (NOVOLOG) ASPART 100 UNITS/ML 10ML VIAL SQ SCH ×3 (06:17→17:04)
[2017-08-22 08:24] LABS: ALBUMIN 2.8 g/dl (3.4-5.0); ALK PHOS 92 U/L (45-117); ANION GAP 9 (8-16); BILIRUBIN,TOTAL 0.9 mg/dL (0.2-1.0); CALCIUM 8.5 mg/dL (8.5-10.1); CO2 26 mmol/L (21-32); CREATININE 0.9 mg/dL (0.7-1.3); GLUCOSE,RANDOM 111 mg/dL (74-106); SGOT/AST 26 U/L (15-37); SGPT/ALT 54 U/L (12-78); TOT PROT 5.9 g/dl (6.4-8.2)
[2017-08-22] MEDS ORDERED: POTASSIUM CHLORIDE ORAL LIQUID 20 MEQ/15 ML PO ONE (08:30)
--- NOTE | 2017-08-22 09:16 | PN ---
Progress Note, Physician Chief Complaint: abdominal pain RUQ History of Present Illness: 81 yo male PMH HTN, DM, HLD, IBD ulcerative colitis, CAD s/p CABGX4, previous GA X3 first in 1994, s/p AAA s/p open repair, 7 stents on Eliquis, chronic systolic and diastolic heart failure. Reports interval improvement of the abdominal pain. He has no complants. he is tolerating diet, having normal bowel habits, was afebrile overnight, Tmax 99 - Current Medication List Current Medications: Active Medications Heparin Sodium (Porcine) (Heparin -) 1,000 unit IVPUSH PRN PRN PRN Reason: Heparin Heparin Sodium (Porcine) (Heparin -) 5,000 unit IVPUSH PRN PRN PRN Reason: Heparin Last Admin: 08/21/17 08:29 Dose: 5,000 unit Sodium Chloride (Normal Saline -) 1,000 mls @ 100 mls/hr IV ASDIR GREGORIO Last Admin: 08/21/17 21:58 Dose: 100 mls/hr Imipenem/Cilastatin Sodium 500 (mg/ Dextrose) 100 mls @ 200 mls/hr IVPB Q8H-IV GREGORIO Last Admin: 08/22/17 01:41 Dose: 200 mls/hr Heparin Sodium (Porcine) 25, (000 unit/ Sodium Chloride) 500 mls @ 16 mls/hr IV TITR GREGORIO; 800 UNIT/HR PRN Reason: Protocol Last Admin: 08/22/17 00:24 Dose: 1,100 unit/hr, 22 mls/hr Insulin Aspart (Novolog Vial) 0 units SQ Q6H GREGORIO PRN Reason: Protocol Last Admin: 08/22/17 06:17 Dose: Not Given Levothyroxine Sodium (Synthroid -) 25 mcg PO AM GREGORIO Last Admin: 08/22/17 06:17 Dose: 25 mcg - Objective Vital Signs: Vital Signs Temperature 99 F 08/22/17 09:00 Pulse Rate 88 08/22/17 09:00 Respiratory Rate 20 08/22/17 09:00 Blood Pressure 147/93 08/22/17 09:00 O2 Sat by Pulse Oximetry (%) 98 08/21/17 21:00 Vital Signs Period Temp Pulse Resp BP Sys/[place]um[place] Pulse Ox Last 24 Hr 98.4 F-99.1 F 83-95 18-20 137-160/87-94 98 Constitutional: Yes: Well Nourished, No Distress, Calm Eyes: Yes: Conjunctiva Clear, EOM Intact HENT: Yes: Atraumatic, Normocephalic Neck: Yes: Supple, Trachea Midline Cardiovascular: Yes: Regular Rate and Rhythm Respiratory: Yes: Regular, CTA Bilaterally Gastrointestinal: Yes: Normal Bowel Sounds, Soft. No: Tenderness (mild RUQ), Tenderness, Epigastrium, Tenderness, Rebound ...Rectal Exam: Yes: Deferred Genitourinary: No: CVA Tenderness - Left, CVA Tenderness - Right Extremities: No: Cool, Cyanosis Edema: No Peripheral Pulses WNL: Yes Integumentary: No: Jaundice, Rash Neurological: Yes: Alert, Oriented Psychiatric: Yes: Alert, Oriented Labs: CBC, BMP 08/22/17 06:45 INR, PTT INR 1.30 (0.82-1.09) H 08/20/17 07:00 Intake & Output 08/21/17 08/22/17 08/22/17 23:59 07:59 15:59 Intake Total 200 1514 Output Total 1800 900 Balance -1600 614 Weight 149 lb 9 oz Intake: IV 1464 Heparin - 25,000 Unit In 264 Normal Saline - 495 ml @ 800 UNIT/HR 16 mls/hr IV TITR GREGORIO Rx#:[id number] Normal Saline - 1,000 ml 1200 @ 100 mls/hr IV ASDIR GREGORIO Rx#:[id number] IVPB 50 Oral 200 Output: Urine 1800 900 Void 1800 900 Other: Voiding Method Toilet # Unmeasured Voids Void 400 Bowel Movement Yes # Bowel Movements 1 Weight Measurement Method Built in [facility] Problem List - Problems (1) Acute gallstone pancreatitis Assessment/Plan: 81yo male with significant cardiac history presents with acute gallstone pancreatitis and cholecystitis. He is improving clinically but remains in guarded condition. He has Tmax 99. advance diet as tolerated consider a course of home antibiotics (Augmentin?) discussed possible considering elective surgery. He would like to be seen by his regular doctor and cardiology prior to making a decision. he was provided with contact information. Code(s): K85.10 - BILIARY ACUTE PANCREATITIS WITHOUT NECROSIS OR INFECTION (2) Pancreatitis Assessment/Plan: Code(s): K85.90 - ACUTE PANCREATITIS WITHOUT NECROSIS OR INFECTION, UNSP Qualifiers: Chronicity: acute Pancreatitis type: biliary Acute pancreatitis complication: unspecified Qualified Code(s): K85.10 - Biliary acute pancreatitis without necrosis or infection (3) Coronary arteriosclerosis Code(s): I25.10 - ATHSCL HEART DISEASE OF [place] CORONARY ARTERY W/O ANG PCTRS (4) Diabetes Code(s): E11.9 - TYPE 2 DIABETES MELLITUS WITHOUT COMPLICATIONS Qualifiers: Diabetes mellitus type: type 2 (5) Hyperlipidemia Code(s): E78.5 - HYPERLIPIDEMIA, UNSPECIFIED
--- NOTE | 2017-08-22 11:16 | PN ---
Physical Exam: SUBJECTIVE: Patient seen and examined at the bedside. States he feels better since admission. He denies abdominal pain, denies shortness of breath. Asking to eat a normal diet so he can go home. Does not want surgery, but may consider it as an outpatient. OBJECTIVE: Advance to regular diet, stop IVF and monitor Discharge planning Vital Signs Period Temp Pulse Resp BP Sys/Dumont Pulse Ox Last 24 Hr 98.4 F-99.1 F 83-95 18-20 137-160/87-94 98 GENERAL: The patient is awake, alert, and fully oriented, in no acute distress. HEAD: Normal with no signs of trauma. EYES: PERRL, extraocular movements intact, sclera anicteric, conjunctiva clear. No ptosis. ENT: Ears normal, nares patent, oropharynx clear without exudates, moist mucous membranes. NECK: Trachea midline, full range of motion, supple. LUNGS: Breath sounds equal, clear to auscultation bilaterally ABDOMEN: Soft, nontender, nondistended, normoactive bowel sounds, no guarding, no rebound, no hepatosplenomegaly, no masses. EXTREMITIES: no edema. NEUROLOGICAL: Normal speech, gait not observed. PSYCH: Normal mood, normal affect. SKIN: Warm, dry, normal turgor, no rashes or lesions noted Laboratory Results - last 24 hr 08/21/17 08/21/17 08/21/17 11:35 15:00 16:41 PTT (Actin FS) 59.1 H Sodium Potassium Chloride Carbon Dioxide Anion Gap BUN Creatinine Creat Clearance w eGFR POC Glucometer 96 105 Random Glucose Calcium Total Bilirubin AST ALT Alkaline Phosphatase Total Protein Albumin Lipase 08/21/17 08/22/17 08/22/17 21:48 06:12 06:45 PTT (Actin FS) 51.4 H Sodium Potassium Chloride Carbon Dioxide Anion Gap BUN Creatinine Creat Clearance w eGFR POC Glucometer 85 97 Random Glucose Calcium Total Bilirubin AST ALT Alkaline Phosphatase Total Protein Albumin Lipase 08/22/17 06:45 PTT (Actin FS) Sodium 139 Potassium 3.4 L Chloride 104 Carbon Dioxide 26 Anion Gap 9 BUN 12 Creatinine 0.9 Creat Clearance w eGFR > 60 POC Glucometer Random Glucose 111 H Calcium 8.5 Total Bilirubin 0.9 AST 26 ALT 54 D Alkaline Phosphatase 92 Total Protein 5.9 L Albumin 2.8 L Lipase 46 L Active Medications Generic Name Dose Route Start Last Admin Trade Name Eitan PRN Reason Stop Dose Admin Heparin Sodium (Porcine) 1,000 unit 08/19/17 16:02 Heparin - IVPUSH PRN PRN Heparin Heparin Sodium (Porcine) 5,000 unit 08/19/17 16:02 08/21/17 08:29 Heparin - IVPUSH 5,000 unit PRN PRN Administration Heparin Imipenem/Cilastatin Sodium 500 100 mls @ 200 mls/hr 08/19/17 16:15 08/22/17 09:24 mg/ Dextrose IVPB 200 mls/hr Q8H-IV GREGORIO Administration Heparin Sodium (Porcine) 25, 500 mls @ 16 mls/hr 08/19/17 16:15 08/22/17 00: 24 000 unit/ Sodium Chloride IV 1,100 unit/hr TITR GREGORIO 22 mls/hr Protocol Administration 800 UNIT/HR Insulin Aspart 0 units 08/20/17 10:45 08/22/17 06:17 Novolog Vial SQ Not Given Q6H GREGORIO Protocol Levothyroxine Sodium 25 mcg 08/20/17 07:00 08/22/17 06:17 Synthroid - PO 25 mcg AM GREGORIO Administration ASSESSMENT/PLAN:
[2017-08-22 11:44] LABS: MCH 28.4 pg (25.7-33.7); MCHC 33.1 g/dl (32.0-35.9); MEAN CELL VOLUME 85.7 fl (80-96); PLATELET COUNT 140 K/MM3 (134-434); RDW 12.9 % (11.9-15.9); WHITE BLOOD COUNT 6.5 K/mm3 (4.0-10.0)
--- NOTE | 2017-08-22 12:47 | PN ---
GI Progress Note Subjective: GI NOte: Above surgical note appreciated. Surgery being deferred to allow pancreatitis to resolve more adequately.. Fever and pain free but has yet to each solids. - Objective Vital Signs: Vital Signs Temperature 99 F 08/22/17 09:00 Pulse Rate 88 08/22/17 09:00 Respiratory Rate 20 08/22/17 09:00 Blood Pressure 147/93 08/22/17 09:00 O2 Sat by Pulse Oximetry (%) 98 08/21/17 21:00 Laboratory Tests 08/22/17 06:45 Total Bilirubin 0.9 AST 26 ALT 54 D Alkaline Phosphatase 92 Lipase 46 L Constitutional: No Distress ...Auscultate: Yes: Normoactive Bowel Sounds ...Palpate: Yes: Soft, Other (nontender) Labs: CBC, BMP 08/22/17 06:45 08/22/17 06:45 INR, PTT INR 1.30 (0.82-1.09) H 08/20/17 07:00 Assessment/Plan Surgery being deferred to allow pancreatitis to resolve. Will ultimately need cholecystectomy as remains at risk for recurrent cholecystitis, cholangitis and recurrent pancreatitis. Await trial of solids
[2017-08-22 14:44] VITALS: BP 122/87; PULSE 87; TEMP 98.6
--- NOTE | 2017-08-22 16:48 | DS ---
Physical Exam: SUBJECTIVE: Patient seen and examined at the bedside. OBJECTIVE: He denies abdominal pain or discomfort Tolerated lunch and dinner without any abdominal pain, discomfort, nausea or vomiting Patient to follow up outpt for surgical evaluation Heparin drip stopped at 1640, Eliquis resumed at 1840. Vital Signs Period Temp Pulse Resp BP Sys/Dumont Pulse Ox Last 24 Hr 98.4 F-99.1 F 83-90 20-21 122-160/87-94 98 PHYSICAL EXAM GENERAL: The patient is awake, alert, and fully oriented, in no acute distress. HEAD: Normal with no signs of trauma. EYES: PERRL, extraocular movements intact, sclera anicteric, conjunctiva clear. No ptosis. ENT: Ears normal, nares patent, oropharynx clear without exudates, moist mucous membranes. NECK: Trachea midline, full range of motion, supple. LUNGS: Breath sounds equal, clear to auscultation bilaterally ABDOMEN: Soft, nontender, nondistended, normoactive bowel sounds, no guarding, no rebound, no hepatosplenomegaly, no masses. EXTREMITIES: no edema. NEUROLOGICAL: Normal speech, gait not observed. PSYCH: Normal mood, normal affect. SKIN: Warm, dry, normal turgor, no rashes or lesions noted Laboratory Results - last 24 hr 08/21/17 08/21/17 08/22/17 16:41 21:48 06:12 WBC RBC Hgb Hct MCV MCH MCHC RDW Plt Count MPV Manual Slide Review PTT (Actin FS) Sodium Potassium Chloride Carbon Dioxide Anion Gap BUN Creatinine Creat Clearance w eGFR POC Glucometer 105 85 97 Random Glucose Calcium Total Bilirubin AST ALT Alkaline Phosphatase Total Protein Albumin Lipase 08/22/17 08/22/17 08/22/17 06:45 06:45 06:45 WBC 6.5 RBC 4.43 Hgb 12.6 D Hct 37.9 D MCV 85.7 MCH 28.4 MCHC 33.1 RDW 12.9 Plt Count 140 MPV 9.0 Manual Slide Review No Result Required. PTT (Actin FS) 51.4 H Sodium 139 Potassium 3.4 L Chloride 104 Carbon Dioxide 26 Anion Gap 9 BUN 12 Creatinine 0.9 Creat Clearance w eGFR > 60 POC Glucometer Random Glucose 111 H Calcium 8.5 Total Bilirubin 0.9 AST 26 ALT 54 D Alkaline Phosphatase 92 Total Protein 5.9 L Albumin 2.8 L Lipase 46 L 08/22/17 11:34 WBC RBC Hgb Hct MCV MCH MCHC RDW Plt Count MPV Manual Slide Review PTT (Actin FS) Sodium Potassium Chloride Carbon Dioxide Anion Gap BUN Creatinine Creat Clearance w eGFR POC Glucometer 131 Random Glucose Calcium Total Bilirubin AST ALT Alkaline Phosphatase Total Protein Albumin Lipase HOSPITAL COURSE: Date of Admission:08/19/17 Date of Discharge: 08/22/17 Patient is an 81 year old male with PMHx of HTN, hypothyroidism, hyperlipidemia , CAD s/p [place] x3 s/p CABG and stents x7, chronic systolic and diastolic heart failure, AAA, inflammatory bowel disease/ulcerative colitis, who presented to the ED with epigastric pain, nausea, vomiting after Thanksgiving dinner. GI: Abdominal pain secondary to acute gallstone pancreatitis, resolved Lipase initially elevated, now within normal limits Remains afebrile, vitals stable MRCP with acute calculus cholecystitis. No biliary tract dilatation. No evidence of choledocholithiasis. Small amount of perihepatic free fluid seen. 0.6cm pancreatic head cyst, correlate in 6 months with MRCP. B/l nephrolithiasis Patient tolerating advanced diet without any abdominal pain or discomfort To continue Cipro 500mg BID and Flagyl 500 TID x 7 more days Outpatient surgical follow up, pt refusing inpatient surgical procedure Cardiology: CAD s/p [place] x3 s/p CABG and stents x 7 Heparin drip stopped, Resume home Eliquis tonight Chronic systolic and diastolic heart failure Denies shortness of breath, no evidence of CHF Tolerating room air, 02 stable Endocrine HmgA1c @ 6.5, boderline Patient to follow up outpatient Disposition: discharge home. full code. Discharge Summary Reason For Visit: ACUTE PANCREATITIS Current Active Problems Acute gallstone pancreatitis (Acute) Cholecystitis (Acute) Pancreatitis (Acute) Condition: Improved - Instructions Diet, Activity, Other Instructions: Follow-up: Call Dr. Pfeiffer' office at [phone] to make your postop appointment (Tuesday 4 weeks after discharge as advised). Clinic is held in the [facility] on the first floor of [facility]. Call the office if you have: * increasing pain not responsive to pain medication * fever of 101F or higher * vomiting Also, see your primary medical doctor within 1-2 weeks. Please see your PCP and follow up on your HmgA1c levels, you may need a repeat. Hmga1c levels are levels used to test your blood sugars over time. Your levels are above the normal range. Referrals: Austin Hodges MD [Primary Care Provider] - Disposition: HOME - Home Medications Comprehensive Discharge Medication List: Ambulatory Orders Multivit-Min/FA/Lycopen/Lutein [Centrum Silver Tablet] 1 each PO DAILY 08/22/16 Rosuvastatin Calcium [Crestor] 20 mg PO HS 08/22/16 Apixaban [Eliquis] 2.5 mg PO BID tablet 08/25/16 Ferrous Gluconate [Iron] 256 mg PO DAILY 08/19/17
--- NOTE | 2017-08-22 16:53 | PN ---
Progress Note, Physician History of Present Illness: Infectious Disease f/u: Patient states he feels much better. Denies abd pain/n/v/d. Ate a turkey sandwich and a piece of cake earlier and denies any discomfort. Denies having any specific complaints. - Current Medication List Current Medications: Active Medications Apixaban (Eliquis -) 2.5 mg PO BID [facility] Imipenem/Cilastatin Sodium 500 (mg/ Dextrose) 100 mls @ 200 mls/hr IVPB Q8H-IV GREGORIO Last Admin: 08/22/17 09:24 Dose: 200 mls/hr Insulin Aspart (Novolog Vial) 0 units SQ Q6H GREGORIO PRN Reason: Protocol Last Admin: 08/22/17 11:40 Dose: Not Given Levothyroxine Sodium (Synthroid -) 25 mcg PO AM GREGORIO Last Admin: 08/22/17 06:17 Dose: 25 mcg - Objective Vital Signs: Vital Signs Temperature 98.6 F 08/22/17 14:00 Pulse Rate 87 08/22/17 14:00 Respiratory Rate 21 08/22/17 14:00 Blood Pressure 122/87 08/22/17 14:00 O2 Sat by Pulse Oximetry (%) 98 08/21/17 21:00 Constitutional: Yes: No Distress, Calm Neck: Yes: Supple Cardiovascular: Yes: Regular Rate and Rhythm Respiratory: Yes: CTA Bilaterally Gastrointestinal: Yes: Normal Bowel Sounds, Soft Genitourinary: Yes: WNL Musculoskeletal: Yes: WNL Extremities: Yes: WNL Integumentary: Yes: WNL Psychiatric: Yes: Alert, Oriented Labs: CBC, BMP 08/22/17 06:45 08/22/17 06:45 INR, PTT INR 1.30 (0.82-1.09) H 08/20/17 07:00 CMP Sodium 139 mmol/L (136-145) 08/22/17 06:45 Potassium 3.4 mmol/L (3.5-5.1) L 08/22/17 06:45 Chloride 104 mmol/L (98-107) 08/22/17 06:45 Carbon Dioxide 26 mmol/L (21-32) 08/22/17 06:45 Anion Gap 9 (8-16) 08/22/17 06:45 BUN 12 mg/dL (7-18) 08/22/17 06:45 Creatinine 0.9 mg/dL (0.7-1.3) 08/22/17 06:45 Creat Clearance w eGFR > 60 (>60) 08/22/17 06:45 POC Glucometer 131 UNITS (80-120) 08/22/17 11:34 Random Glucose 111 mg/dL (74-106) H 08/22/17 06:45 Hemoglobin A1c % 6.5 % (4.8-6.0) H D 08/20/17 07:00 Calcium 8.5 mg/dL (8.5-10.1) 08/22/17 06:45 Phosphorus 2.1 mg/dL (2.5-4.9) L 08/21/17 06:20 Magnesium 1.8 mg/dL (1.8-2.4) D 08/20/17 07:00 Total Bilirubin 0.9 mg/dL (0.2-1.0) 08/22/17 06:45 Direct Bilirubin 0.2 mg/dL (0.0-0.2) 08/19/17 16:45 AST 26 U/L (15-37) 08/22/17 06:45 ALT 54 U/L (12-78) D 08/22/17 06:45 Alkaline Phosphatase 92 U/L (45-117) 08/22/17 06:45 Creatine Kinase 115 IU/L (39-308) 08/19/17 04:41 Troponin I < 0.02 ng/ml (0.00-0.05) 08/19/17 04:41 Total Protein 5.9 g/dl (6.4-8.2) L 08/22/17 06:45 Albumin 2.8 g/dl (3.4-5.0) L 08/22/17 06:45 Lipase 46 U/L (73-393) L 08/22/17 06:45 Microbiology 08/19/17 16:45 Blood - Peripheral Venous Blood Culture - Preliminary NO GROWTH OBTAINED AFTER 48 HOURS, INCUBATION TO CONTINUE FOR 3 DAYS. 08/19/17 16:45 Blood - Peripheral Venous Blood Culture - Preliminary NO GROWTH OBTAINED AFTER 48 HOURS, INCUBATION TO CONTINUE FOR 3 DAYS. 08/19/17 19:00 Urine - Urine Clean Catch Urine Culture - Final NO GROWTH OBTAINED Problem List - Problems (1) Acute gallstone pancreatitis Code(s): K85.10 - BILIARY ACUTE PANCREATITIS WITHOUT NECROSIS OR INFECTION (2) Cholecystitis Code(s): K81.9 - CHOLECYSTITIS, UNSPECIFIED (3) Hyperlipidemia Code(s): E78.5 - HYPERLIPIDEMIA, UNSPECIFIED (4) Hypertension Code(s): I10 - ESSENTIAL (PRIMARY) HYPERTENSION Assessment/Plan Gallstone Pancreatitis Cholecystitis HTN, HLD, CAD s/p [place] x3, s/p CABG s/p stents, AAA s/p repair, IDDM, and IBD - pt appears to be improving, LFTs improved - switch to cipro/flagyl po x 1 wk if d/c home - wishes to defer surgery at this time, to f/u with PMD
[2017-08-22] MEDS: APIXABAN 2.5 MG TABLET PO SCH ×2 (17:28→17:32)
== END 2017-08-22 19:14 | disposition home or self-care (01) | DRG 444 ==
LOC: FER 05:30 → J6S 11:53
PROVIDERS: ADMIT Internal Medicine; ATTEND Nurse Practitioner Family
DX: K81.0 Acute cholecystitis (principal); K85.10 Biliary acute pancreatitis without necrosis or infection; I50.42 Chronic combined systolic (congestive) and diastolic (congestive) heart failure; I25.2 Old myocardial infarction; E78.5 Hyperlipidemia, unspecified; Z87.891 Personal history of nicotine dependence; I25.10 Atherosclerotic heart disease of native coronary artery without angina pectoris; I11.0 Hypertensive heart disease with heart failure; E11.65 Type 2 diabetes mellitus with hyperglycemia; Z79.84 Long term (current) use of oral hypoglycemic drugs
CPT/HCPCS: 36415; 71010-TC; 74176-TC; 74181-TC; 76705-TC; 80053; 80076; 81003; 81015; 82550; 83036; 83690; 83735; 84100; 84484; 85025; 85027; 85610; 85730; 86850; 86900; 86901; 87040; 87086; 93005; 93306-TC; 97116-GP; 97161-GP; 99284-25; J1644

== ENCOUNTER 2018-02-18 19:10 | Observation (INO) | payer OTHER ==
--- NOTE | 2018-02-18 19:21 | PDOC ---
History of Present Illness - General Chief Complaint: Chest Pain Stated Complaint: CHEST DISCOMFORT Time Seen by Provider: 02/18/18 19:20 - History of Present Illness Initial Comments: 02/18/18 19:43 The patient is an 82 year old male with a history of HTN, HLD, CAD, [place] x3 s/p Stenting and bipass surgery, DM who presents for evaluation of chest pain. The patient notes onset of chest pain that he describes as a pressure after dinner this evening prompting his presentation to the ED for further evaluation. The patient notes that his symptoms have since resolved and he did receive a nitro en route to the ED which helped improve his symptoms. The patient states that he does not normally have chest pain and is active without chest pain on exertion. The patient notes that his chest pain this evening was not has bad and felt different from his chest pain that he had with his prior [place]. The patient otherwise denies fevers, chills, SOB, nausea, vomiting, abdominal pain, or changes with urination or bowel movements. Past History - Past Medical History Allergies/Adverse Reactions: Allergies Allergy/AdvReac Type Severity Reaction Status Date / Time No Known Allergies Allergy Verified 02/18/18 19:23 Home Medications: Ambulatory Orders Rosuvastatin Calcium [Crestor] 20 mg PO HS 08/22/16 Aspirin Coated [Ecotrin -] 81 mg PO DAILY tablet.ec 02/19/18 Heparin - 1,000 unit IVPUSH PRN PRN vial 02/19/18 Heparin - 5,000 unit IVPUSH PRN PRN vial 02/19/18 Anemia: Yes (microcytic) Asthma: No Cancer: No Cardiac Disorders: Yes ([place] X 2, AAA, stents) CVA: No COPD: No CHF: Yes Dementia: No Diabetes: Yes (2003) GI Disorders: Yes (COLITIS) Disorders: No HTN: Yes Hypercholesterolemia: Yes Liver Disease: No Seizures: No Thyroid Disease: No - Surgical History Abdominal Surgery: Yes (AAA APR 2012) Appendectomy: No Cardiac Surgery: Yes (ANGIOPLASTY TIMES 6 STENTS LAST JUN 2014) Cholecystectomy: No Lung Surgery: No Neurologic Surgery: No Orthopedic Surgery: No - Immunization History Td Vaccination: No TDAP Vaccination: No Immunization Up to Date: No - Suicide/Smoking/Psychosocial Hx Smoking History: Former smoker Have you smoked in the past 12 months: No Number of Cigarettes Smoked Daily: 0 If you are a former smoker, when did you quit?: 1994 Information on smoking cessation initiated: No Hx Alcohol Use: No Drug/Substance Use Hx: No Substance Use Type: None Hx Substance Use Treatment: No Review of Systems - Review of Systems Comments:: 02/18/18 19:47 Constitutional: No fevers, chills, fatigue, malaise HEENT: No Rhinorrhea, nasal congestion, visual changes Cardiovascular: Chest pain. No syncope, palpitations, lightheadedness Respiratory: No Cough, SOB, Hemoptysis, Gastrointestinal: No Abdominal pain, Nausea, Vomiting, Constipation, Diarrhea, Melena Genitourinary: No Dysuria, Frequency, Urgency, Hesitancy, Hematuria, Flank pain Musculoskeletal: No Myalgia, arthralgia Skin: No rashes, itching, bruising, pallor Neurologic: No Headache, Dizziness, Numbness, Weakness, or Tingling Psychiatric: No Hallucinations. No SI or HI *Physical Exam - Physical Exam Comments: 02/18/18 19:47 General Appearance: Nourished. No Apparent Distress HEENT: EOMI, HELENA. No Pharyngeal Erythema, Tonsillar Exudate, Tonsillar Erythema Neck: No Cervical Lymphadenopathy Respiratory/Chest: Lungs Clear, Normal Breath Sounds. No Crackles, Rales, Rhonchi, Wheezing Cardiovascular: Regular Rhythm, Regular Rate. No Murmur, Gallops, Rubs Gastrointestinal/Abdominal: Normal Bowel Sounds, Soft. No Guarding, Rebound, Tenderness Musculoskeletal: No CVA Tenderness Extremity: Normal Capillary Refill Integumentary: Normal Color, Dry, Warm Neurologic: Fully Oriented, Alert, Normal Mood/Affect, Normal Response, Heart Score/ECG Review #1 ECG reviewed & interpreted by me at: 19:47 General ECG Interpretation: Sinus Rhythm, Normal Rate, Normal Intervals, No acute ischemic changes #2 ECG reviewed & interpreted by me at: 20:55 General ECG Interpretation: Sinus Rhythm, Normal Rate, Normal Intervals, No acute ischemic changes Compared to previous ECG there are: No significant change ED Treatment Course - LABORATORY CBC & Chemistry Diagram: 02/18/18 19:42 02/18/18 19:42 Medical Decision Making - Medical Decision Making 02/18/18 19:48 The patient is an 82 year old male with a history of HTN, HLD, CAD, [place] x3 s/p Stenting and bipass surgery, DM who presents for evaluation of chest pain. Differential includes but is not limited to: ACS, Pneumonia, Angina, Infectious , Metabolic derangement. Given the patient's significant cardiac history, we will obtain a cbc, cmp, troponin, ekg, chest plain film to evaluate further for possible etiologies. We will continue to monitor and reassess while here in the ED. 02/18/18 21:39 CBC, cmp, troponin are unremarkable. Chest plain film is unremarkable as preliminarily read by ER physician. The patient reports worsening chest pain once again here in the ED. Repeat EKG is unchanged. He will require observation admission for further management. We discussed the case with the hospitalist team who accepted the patient for admission. *DC/Admit/Observation/Transfer Diagnosis at time of Disposition: Chest pain Qualifiers: Chest pain type: unspecified Qualified Code(s): R07.9 - Chest pain, unspecified - Discharge Dispostion Disposition: TRANSFER ACUTE CARE/OTHER HOSP Condition at time of disposition: Guarded Decision to Admit order: Yes - Referrals - Patient Instructions - Post Discharge Activity
[2018-02-18 19:27] VITALS: BMI 19.2
[2018-02-18 19:58] LABS: BASO % 1.3 % (0-2.0); EOS % 2.1 % (0-4.5); HEMATOCRIT 37.5 % (35.4-49); HEMOGLOBIN 12.4 GM/dL (11.7-16.9); LYMPH % 25.2 % (8-40); MCH 28.5 pg (25.7-33.7); MEAN CELL VOLUME 86.2 fl (80-96); MEAN PLT VOLUME 8.9 fl (7.5-11.1); NEUT % 61.4 % (42.8-82.8); PLATELET COUNT 159 K/MM3 (134-434); RBC 4.35 M/mm3 (4.00-5.60); RDW 13.7 % (11.9-15.9); WHITE BLOOD COUNT 5.4 K/mm3 (4.0-10.0)
[2018-02-18 20:13] LABS: INR 1.17 (0.82-1.09); PROTHROMBIN TIME (PATIENT) 13.2 SEC (9.7-13.0)
[2018-02-18 20:16] LABS: ACTIVATED PTT 33.2 SECONDS (26.9-34.4)
[2018-02-18 20:24] LABS: ALBUMIN 3.5 g/dl (3.4-5.0); ANION GAP 4 (8-16); BLOOD UREA NITROGEN 30 mg/dL (7-18); CALCIUM 8.7 mg/dL (8.5-10.1); CHLORIDE 108 mmol/L (98-107); CO2 30 mmol/L (21-32); CREATININE 1.7 mg/dL (0.7-1.3); GLUCOSE,RANDOM 124 mg/dL (74-106); POTASSIUM 4.6 mmol/L (3.5-5.1); SGOT/AST 12 U/L (15-37); SGPT/ALT 12 U/L (12-78); SODIUM 142 mmol/L (136-145)
[2018-02-18 20:26] LABS: ALK PHOS 102 U/L (45-117); BILIRUBIN,TOTAL 0.4 mg/dL (0.2-1.0); TOT PROT 7.3 g/dl (6.4-8.2)
--- NOTE | 2018-02-18 20:30 | PDOC ---
Attending Attestation - Resident Resident Name: SuzannaBilly - ED Attending Attestation I have performed the following: I have examined & evaluated the patient, The case was reviewed & discussed with the resident, I agree w/resident's findings & plan - HPI HPI: 02/18/18 20:24 82y/o M h/o CAD s/p MIx3, stent, CABG 3 years ago p/w episode of chest pain/ pressure this evening after dinner, associated with diaphoresis and lasting 30 minutes, now resolved. no palp/sob/syncope otherwise has been at his baseline good exertional tolerance, went to the gym yesterday morning and had his full bicycle workout without difficulty. takes eliquis. no h/o gerd. sxs were similar in type to prior MA (pressure, diaphoresis) but not as severe - Physicial Exam PE: 02/18/18 20:27 VSS well appearing in NAD s1s2 reg L basilar crackles no edema - Critical Care Time Total Critical Care Time: 35 Critical Care Statement: The care of this patient involved high complexity decision making to prevent further life threatening deterioration of the patient 's condition and/or to evaluate & treat vital organ system(s) failure or risk of failure. - Medical Decision Making 02/18/18 20:27 82y/o M with extensive cardiac history p/w episode of cp at rest tonight, now resolved. EKG without acute ischemia, VSS labs, cxr aspirin admit for cardiac monitoring 02/18/18 20:33 trop negative. Cr elevated 1.7, prior in 08/12 0.9 but has been at 1.6 in the past. had another episode of chest pressure, BP stable but noted to have PVC on monitor during event. repeat EKG and proceed with tele admission 02/19/18 02:35 call from lab with positive trop of 5. admitting team notified and at bedside, starting pt on heparin and brillinta. clinically unchanged. Heart Score/ECG Review #1 ECG reviewed & interpreted by me at: 19:29 General ECG Interpretation: Sinus Rhythm, Normal Rate (85), Normal Intervals ( qtc 461), No acute ischemic changes Compared to previous ECG there are: No significant change (c/w 08/12) #2 ECG reviewed & interpreted by me at: 20:36 Compared to previous ECG there are: No significant change
[2018-02-18] MEDS ORDERED: ASPIRIN 81 MG CHEWABLE TABLETS PO ONE (20:36)
[2018-02-18] MEDS ORDERED: ASPIRIN 81 MG CHEWABLE TABLETS ONE (20:39)
--- NOTE | 2018-02-18 21:52 | HP ---
CHIEF COMPLAINT: Chest pressure x 1 day PCP: Dr Briggs- [employer] Sales Assistant -[facility] HISTORY OF PRESENT ILLNESS: Pt is an 82 year old male with PMHx of HTN, hypothyroidism, hyperlipidemia, CAD s/p [place] x3 s/p CABG and stents x7, chronic systolic and diastolic heart failure, AAA, inflammatory bowel disease/ulcerative colitis, DM (now diet controlled), presenting with recurrent chest pressure. Pt just finished dinner with his family about 30mins prior (about 6.30pm), when he noted a transient 5/10 retrosternal chest pain that quickly became chest pressure lasting about 5- 10mins. The pain was associated with diaphoresis and clutching the chest, no radiation to arm, neck, or back and no associated SOB. No palpitations, no syncope. No leg swelling, cough, orthopnea or PND. Pt described the pain as different from the pain of the previous MIs, the abdominal aortic aneurysm or pancreatitis. EMS was activated, but the pain resolved spontaneously prior. In the ambulance, he received SL nitroglycerin despite resolution of the pain. He also received high dose ASA in the ED. While in the ED, he had another short episode of the chest pressure that also spontaneously resolved, with associated PVCs on the monitor, but unchanged EKG. Pt is physically active, going to the gym 3 times a week. He was last in the gym yesterday on the treadmill, stationary bike and abdominal press with no SOB or chest pain on exertion prior. pt follows a cardiol and has had a recent stress test in the past year. ER course was notable for: (1) DC-88, BP-154/103, (2) EKG x2-Vent rate-85bpm, incomplete LBBB, possible inferior infarct (3) trops<0.02, Cr-1.7 Recent Travel: PAST MEDICAL HISTORY: HTN, hypothyroidism, hyperlipidemia, CAD s/p [place] x3 s/p CABG and stents x7, chronic systolic and diastolic heart failure, AAA- rupture and repair inflammatory bowel disease/ulcerative colitis, DM (now diet controlled) PAST SURGICAL HISTORY: R inguinal hernia repair CABG and cardiac stent placements AAA rupture repair Social History: Lives with , independent ADLs Smoking: Quit 1994, smoked half pack/day Alcohol: social-half a can of beer in a couple of weeks Drugs: Denies Family History: Hx of cancer Allergies No Known Allergies Allergy (Verified 02/18/18 19:23) HOME MEDICATIONS: Home Medications Medication Instructions Recorded Multivit-Min/FA/Lycopen/Lutein 1 each PO DAILY 08/22/16 [Centrum Silver Tablet] Rosuvastatin Calcium [Crestor] 20 mg PO HS 08/22/16 Apixaban [Eliquis] 2.5 mg PO BID tablet 08/25/16 Ferrous Gluconate [Iron] 256 mg PO DAILY 08/19/17 REVIEW OF SYSTEMS CONSTITUTIONAL: Absent: fever, chills, diaphoresis, generalized weakness, malaise, loss of appetite, weight change HEENT: Absent: rhinorrhea, nasal congestion, throat pain, throat swelling, difficulty swallowing, mouth swelling, ear pain, eye pain, visual changes CARDIOVASCULAR: Absent: chest pain+, syncope, palpitations, irregular heart rate, lightheadedness, peripheral edema RESPIRATORY: Absent: cough, shortness of breath, dyspnea with exertion, orthopnea, wheezing, stridor, hemoptysis GASTROINTESTINAL: Absent: abdominal pain, abdominal distension, nausea, vomiting, diarrhea, constipation, melena, hematochezia GENITOURINARY: Absent: dysuria, frequency, urgency, hesitancy, hematuria, flank pain, genital pain MUSCULOSKELETAL: Absent: myalgia, arthralgia, joint swelling, back pain, neck pain SKIN: Absent: rash, itching, pallor HEMATOLOGIC/IMMUNOLOGIC: Absent: easy bleeding, easy bruising, lymphadenopathy, frequent infections ENDOCRINE: Absent: unexplained weight gain, unexplained weight loss, heat intolerance, cold intolerance NEUROLOGIC: Absent: headache, focal weakness or paresthesias, dizziness, unsteady gait, seizure, mental status changes, bladder or bowel incontinence PSYCHIATRIC: Absent: anxiety, depression, suicidal or homicidal ideation, hallucinations. PHYSICAL EXAMINATION Vital Signs - 24 hr 02/18/18 02/18/18 19:24 20:38 Temperature 97.8 F Pulse Rate 88 Pulse Rate [ 86 Apical] Respiratory 18 18 Rate Blood Pressure 153/104 Blood Pressure 152/100 [Left Arm] O2 Sat by Pulse 100 96 Oximetry (%) GENERAL: Awake, alert, and fully oriented, in no acute distress. HEAD: Normal with no signs of trauma. EYES: Pupils equal, round and reactive to light, extraocular movements intact, EARS, NOSE, THROAT: oropharynx clear without exudates. Moist mucous membranes. NECK: Normal range of motion, supple, no JVD. LUNGS: Scant basal creps bilaterally, No wheezes, No accessory muscle use. HEART: Regular rate and rhythm, normal S1 and S2 without murmur. ABDOMEN: Soft, nontender, not distended, normoactive bowel sounds MUSCULOSKELETAL: Normal range of motion at all joints. No bony deformities or tenderness. No CVA tenderness. UPPER EXTREMITIES: 2+ pulses, warm, well-perfused. LOWER EXTREMITIES: pulses hard to palpate, warm. No calf tenderness. No peripheral edema. NEUROLOGICAL: Cranial nerves II-XII intact. Normal speech. No facial droop, normal tone, muscle strength 5/5 globally. Abnormal Lab Results 02/18/18 02/18/18 02/18/18 19:42 19:42 19:42 PT with INR 13.20 H INR 1.17 H Chloride 108 H Anion Gap 4 L BUN 30 H D Creatinine 1.7 H D Random Glucose 124 H AST 12 L D B-Natriuretic Peptide 1470.32 H Laboratory Results - last 24 hr 02/18/18 02/18/18 02/18/18 19:42 19:42 19:42 WBC 5.4 RBC 4.35 Hgb 12.4 Hct 37.5 MCV 86.2 MCH 28.5 MCHC 33.0 RDW 13.7 Plt Count 159 MPV 8.9 Neutrophils % 61.4 D Lymphocytes % 25.2 D Monocytes % 10.0 Eosinophils % 2.1 D Basophils % 1.3 D Nucleated RBC % 0 PT with INR INR PTT (Actin FS) Sodium 142 Potassium 4.6 D Chloride 108 H Carbon Dioxide 30 Anion Gap 4 L BUN 30 H D Creatinine 1.7 H D Creat Clearance w eGFR 38.78 Random Glucose 124 H Calcium 8.7 Total Bilirubin 0.4 D AST 12 L D ALT 12 D Alkaline Phosphatase 102 Creatine Kinase 69 Troponin I < 0.02 Total Protein 7.3 D Albumin 3.5 D 02/18/18 19:42 WBC RBC Hgb Hct MCV MCH MCHC RDW Plt Count MPV Neutrophils % Lymphocytes % Monocytes % Eosinophils % Basophils % Nucleated RBC % PT with INR 13.20 H INR 1.17 H PTT (Actin FS) 33.2 D Sodium Potassium Chloride Carbon Dioxide Anion Gap BUN Creatinine Creat Clearance w eGFR Random Glucose Calcium Total Bilirubin AST ALT Alkaline Phosphatase Creatine Kinase Troponin I Total Protein Albumin ASSESSMENT/PLAN: Pt is an 82 year old male with PMHx of HTN, hypothyroidism, hyperlipidemia, CAD s/p [place] x3 s/p CABG and stents x7, chronic systolic and diastolic heart failure, AAA, inflammatory bowel disease/ulcerative colitis, DM Chest pain/pressure R/O ACS EKG stat repeat EKG with elevated trops- Trops x3, intial trops ,0.02, BNP CXR Cardiology consult- Dr Green ASA 81 daily ECHO troponinemia- NSTEMI Repeat trops-2nd trops-5.09 trops for 4.00am, EKG -3.30am stat EKG-EKG changes from admission loading dose of ticagrelor 180mg stat d/c apixaban start the patient on heparin drip patient was loaded with asprin 325mg will continue 81mg daily cardiology consultation admit to telemetry unit For likely transfer if troponin are trending upwards DM (now diet controlled) Hgb A1c ISS ACHS BGM ACHS HTN No home antihypertensives Monitor BP closely hypothyroidism, Continue synthroid hyperlipidemia, Cont crestor 20mg CAD s/p [place] x3 s/p CABG and stents x7, now with NSTEMI Stop apaxiban -load ticagrelor and start heparin drip as above chronic systolic and diastolic heart failure Does not look hypervolemic, monitor AAA- rupture and repair Appears stable Monitor inflammatory bowel disease/ulcerative colitis Not in acute flare FEN No standing fluids Monitor lytes NPO from now for likely cath PPx on heparin drip Dispo: Admit to tele for likely transfer if trops trend up Visit type - Emergency Visit Emergency Visit: Yes ED Registration Date: 02/18/18 Care time: The patient presented to the Emergency Department on the above date and was hospitalized for further evaluation of their emergent condition. - New Patient This patient is new to me today: Yes Date on this admission: 02/19/18 - Critical Care Critical Care patient: No Hospitalist Screening - Colonoscopy Questionnaire Colonoscopy Questionnaire: Colonoscopy Questionnaire - Patient: 50 - 75 years old and never had a screening colonoscopy: No History of colon or rectal polyps, or CA: Unknown History of IBD, Crohn's disease or UC: Unknown History of abdominal radiation therapy as a child: Unknown - Relative: 1 with colon or rectal CA, or polyps at age 60 or younger: Unknown Colon or rectal CA diagnosed at age 45 or younger: Unknown Multiple relatives with colon or rectal CA: Unknown - Outcome: Screening Result: Negative Screen
[2018-02-19] MEDS ORDERED: TICAGRELOR 90 MG TABLET PO STA (02:30)
[2018-02-19] MEDS ORDERED: HEPARIN NA (PORCINE) 5,000 UNITS/ML 1ML VIAL IVPUSH PRN ×2 (02:35)
[2018-02-19] MEDS ORDERED: TICAGRELOR 90 MG TABLET PO ONE (02:41)
[2018-02-19] MEDS ORDERED: HEPARIN NA (PORCINE) 5,000 UNITS/ML 1ML VIAL ONE (02:42)
[2018-02-19] MEDS ORDERED: HEPARIN INFUSION - 25,000 UNITS/500 ML INFUS.BAG IVPB ONE (02:42)
[2018-02-19] MEDS ORDERED: HEPARIN INFUSION - 25,000 UNITS/500 ML INFUS.BAG IVPB SCH (02:45)
--- NOTE | 2018-02-19 03:13 | PN ---
Teaching Attending Note Name of Resident: Caitlyn Leblanc ATTENDING PHYSICIAN STATEMENT I saw and evaluated the patient. I reviewed the resident's note and discussed the case with the resident. I agree with the resident's findings and plan as documented. SUBJECTIVE: OBJECTIVE: ASSESSMENT AND PLAN: this is an 82 y/o male patient with hx of CAD s/p CABG, and PCI x 7, diet controlled DM, hypothyroidism presented with 1 episode of typical chest pain that occurred in the after noon around 6:30 pm when the patient was with his family. patient stated that this pain was different from the pain he had prior , however it did reoccur again while he was in the ED. patient initially had negative troponin when he was in the ER however the repeat showing trending up troponin. patient is not taking any aspirin according to him due to bruising, however he is taking apixiban 2.5mg and there is no clear history why he is on apixiban. at the time of the interview the patient has been asymptomatic, however there are new ECG that occurred on V5,V6 associated with T wave inversion and V3 where there is a hyperacute Twave. 82 y/o male admitted for NSTEMI plan: loading dose of ticagrelor 180mg stat d/c apixaban start the patient on heparin drip patient was loaded with asprin 325mg will continue 81mg daily repeat ECG and troponin cardiology consultation admit to telemetry unit if the troponin are still elevated consider transfering the patient to a center for an urgent cath within 24 hours for NSTEMI c/w levothyroixine insulin sliding scale echocardiogram
[2018-02-19] MEDS ORDERED: NITROGLYCERIN 25MG/D5W 250ML 25 MG/250 ML ML IVPB ONE (05:07)
[2018-02-19] MEDS ORDERED: NITROGLYCERIN 25MG/D5W 250ML 25 MG/250 ML ML IVPB SCH (05:15)
--- NOTE | 2018-02-19 05:46 | DS ---
Physical Exam: SUBJECTIVE: Patient seen and examined. Still says he has no chest pain. OBJECTIVE: Vital Signs Period Temp Pulse Resp BP Sys/[place] Pulse Ox Last 24 Hr 97.8 F 86-88 -18 152-153/100-104 96-100 Vital Signs Temp 97.8 F 02/18/18 19:24 Pulse 86 02/18/18 20:38 Resp 18 02/18/18 20:38 BP 152/100 02/18/18 20:38 Pulse Ox 96 02/18/18 20:38 Intake & Output 02/18/18 02/18/18 02/19/18 11:59 23:59 11:59 Weight 62.596 kg Other: Height 1.8 m Body Mass Index (BMI) 19.2 PHYSICAL EXAM GENERAL: The patient is awake, alert, and fully oriented, in no acute distress. HEAD: Normal with no signs of trauma. EYES: PERRL, extraocular movements intact LUNGS: Breath sounds equal, clear to auscultation bilaterally HEART: Regular rate and rhythm, S1, S2 without murmur, rub or gallop. ABDOMEN: Soft, nontender, nondistended, normoactive bowel sounds EXTREMITIES: 2+ pulses, warm, well-perfused, no edema. NEUROLOGICAL: Cranial nerves II through XII grossly intact. Normal speech, muscle strength 5/5 LABS Abnormal Lab Results 02/18/18 02/18/18 02/18/18 19:42 19:42 19:42 PT with INR 13.20 H INR 1.17 H Chloride 108 H Anion Gap 4 L BUN 30 H D Creatinine 1.7 H D Random Glucose 124 H AST 12 L D Creatine Kinase Creatine Kinase Index CK-MB (CK-2) Troponin I B-Natriuretic Peptide 1470.32 H 02/19/18 02/19/18 01:10 04:10 PT with INR INR Chloride Anion Gap BUN Creatinine Random Glucose AST Creatine Kinase 791 H Creatine Kinase Index 18.3 H* CK-MB (CK-2) 144.785 H Troponin I 5.09 H* D 36.30 H* D B-Natriuretic Peptide Laboratory Results - last 24 hr 02/18/18 02/18/18 02/18/18 19:42 19:42 19:42 WBC 5.4 RBC 4.35 Hgb 12.4 Hct 37.5 MCV 86.2 MCH 28.5 MCHC 33.0 RDW 13.7 Plt Count 159 MPV 8.9 Neutrophils % 61.4 D Lymphocytes % 25.2 D Monocytes % 10.0 Eosinophils % 2.1 D Basophils % 1.3 D Nucleated RBC % 0 PT with INR INR PTT (Actin FS) Sodium 142 Potassium 4.6 D Chloride 108 H Carbon Dioxide 30 Anion Gap 4 L BUN 30 H D Creatinine 1.7 H D Creat Clearance w eGFR 38.78 POC Glucometer Random Glucose 124 H Calcium 8.7 Total Bilirubin 0.4 D AST 12 L D ALT 12 D Alkaline Phosphatase 102 Creatine Kinase 69 Creatine Kinase Index CK-MB (CK-2) Troponin I < 0.02 B-Natriuretic Peptide Total Protein 7.3 D Albumin 3.5 D 02/18/18 02/18/18 02/19/18 19:42 19:42 01:10 WBC RBC Hgb Hct MCV MCH MCHC RDW Plt Count MPV Neutrophils % Lymphocytes % Monocytes % Eosinophils % Basophils % Nucleated RBC % PT with INR 13.20 H INR 1.17 H PTT (Actin FS) 33.2 D Sodium Potassium Chloride Carbon Dioxide Anion Gap BUN Creatinine Creat Clearance w eGFR POC Glucometer Random Glucose Calcium Total Bilirubin AST ALT Alkaline Phosphatase Creatine Kinase Creatine Kinase Index CK-MB (CK-2) Troponin I 5.09 H* D B-Natriuretic Peptide 1470.32 H Total Protein Albumin 02/19/18 02/19/18 04:10 04:20 WBC RBC Hgb Hct MCV MCH MCHC RDW Plt Count MPV Neutrophils % Lymphocytes % Monocytes % Eosinophils % Basophils % Nucleated RBC % PT with INR INR PTT (Actin FS) Sodium Potassium Chloride Carbon Dioxide Anion Gap BUN Creatinine Creat Clearance w eGFR POC Glucometer 138.19496 Random Glucose Calcium Total Bilirubin AST ALT Alkaline Phosphatase Creatine Kinase 791 H Creatine Kinase Index 18.3 H* CK-MB (CK-2) 144.785 H Troponin I 36.30 H* D B-Natriuretic Peptide Total Protein Albumin HOSPITAL COURSE: Date of Admission:02/18/18 Date of Discharge: 02/19/18 Pt is an 82 year old male with PMHx of HTN, hypothyroidism, hyperlipidemia, CAD s/p [place] x3 s/p CABG and stents x7, chronic systolic and diastolic heart failure, AAA, inflammatory bowel disease/ulcerative colitis, DM (now diet controlled), presenting with recurrent chest pressure and found to have NSTEMI. Initial trops were negative, subsequent trops were 5.09 and 36.30. EKG was initially normal then showed T wave depressions in the lateral leads (V4 -V6). [facility], accepted by Dr Griffith on behalf of Dr Lau. Pt was hemodynamically stable when transferred on heparin but off nitroglycerin drip. Minutes to complete discharge: 48 Discharge Summary Reason For Visit: CHEST PAIN Current Active Problems Chest pain (Acute) Condition: Unchanged/Unknown - Instructions Diet, Activity, Other Instructions: You came in with chest pain We did EKGs on you and checked your heart enzymes which indicate that you are having a heart attack We are transferring you to [facility] for expert management including cardiac catheterization You have been accepted by Dr Griffith for Dr Lau Disposition: TRANSFER ACUTE CARE/OTHER HOSP - Home Medications Comprehensive Discharge Medication List: Ambulatory Orders Rosuvastatin Calcium [Crestor] 20 mg PO HS 08/22/16 Aspirin Coated [Ecotrin -] 81 mg PO DAILY tablet.ec 02/19/18 Heparin - 1,000 unit IVPUSH PRN PRN vial 02/19/18 Heparin - 5,000 unit IVPUSH PRN PRN vial 02/19/18 This patient is new to me today: Yes Date on this admission: 02/19/18 Emergency Visit: Yes ED Registration Date: 02/18/18 Care time: The patient presented to the Emergency Department on the above date and was hospitalized for further evaluation of their emergent condition. Critical Care patient: No - Discharge Referral Referred to [facility] Med P.C.: No
[2018-02-19 06:28] VITALS: TEMP 98.5
[2018-02-19 06:38] VITALS: PULSE 84
[2018-02-19 06:39] VITALS: BP 128/76
[2018-02-19] MEDS ORDERED: LEVOTHYROXINE NA 25 MCG TABLET (FP) PO SCH (07:00)
[2018-02-19] MEDS ORDERED: APIXABAN 2.5 MG TABLET PO SCH (10:00)
[2018-02-19] MEDS ORDERED: ASPIRIN COATED 81 MG TABLET.EC PO SCH (10:00)
--- NOTE | 2018-02-19 10:12 | EKG ---
Test Reason : Blood Pressure : / mmHG Vent. Rate : 085 BPM Atrial Rate : 085 BPM P-R Int : 128 ms QRS Dur : 098 ms QT Int : 398 ms P-R-T Axes : 059 023 147 degrees QTc Int : 473 ms SINUS RHYTHM WITH OCCASIONAL PREMATURE VENTRICULAR COMPLEXES LOW VOLTAGE QRS INFERIOR INFARCT , AGE UNDETERMINED T WAVE ABNORMALITY, CONSIDER LATERAL ISCHEMIA ABNORMAL ECG WHEN COMPARED WITH ECG OF 18-FEB-2018 20:36, PREMATURE VENTRICULAR COMPLEXES ARE NOW PRESENT INFERIOR INFARCT IS NOW PRESENT T WAVE INVERSION NOW EVIDENT IN INFERIOR LEADS INVERTED T WAVES HAVE REPLACED NONSPECIFIC T WAVE ABNORMALITY IN LATERAL LEADS Confirmed by CORONA WHALEY, VINITA ([id number]) on 02/19/2018 10:11:34 AM Referred By: Confirmed By:VINITA JETER MD
--- NOTE | 2018-02-19 10:12 | EKG ---
Test Reason : Blood Pressure : / mmHG Vent. Rate : 085 BPM Atrial Rate : 085 BPM P-R Int : 134 ms QRS Dur : 088 ms QT Int : 388 ms P-R-T Axes : 062 002 059 degrees QTc Int : 461 ms NORMAL SINUS RHYTHM POSSIBLE LEFT ATRIAL ENLARGEMENT LOW VOLTAGE QRS CANNOT RULE OUT ANTERIOR INFARCT , AGE UNDETERMINED ABNORMAL ECG WHEN COMPARED WITH ECG OF 19-AUG-2017 07:40, MINIMAL CRITERIA FOR ANTERIOR INFARCT ARE NOW PRESENT CRITERIA FOR INFERIOR INFARCT ARE NO LONGER PRESENT NONSPECIFIC T WAVE ABNORMALITY, IMPROVED IN LATERAL LEADS Confirmed by VINITA JETER MD ([id number]) on 02/19/2018 10:12:44 AM Referred By: Confirmed By:VINITA JETER MD
--- NOTE | 2018-02-19 10:12 | EKG ---
Test Reason : Blood Pressure : / mmHG Vent. Rate : 082 BPM Atrial Rate : 082 BPM P-R Int : 144 ms QRS Dur : 088 ms QT Int : 378 ms P-R-T Axes : 065 -12 058 degrees QTc Int : 441 ms NORMAL SINUS RHYTHM POSSIBLE LEFT ATRIAL ENLARGEMENT CANNOT RULE OUT ANTERIOR INFARCT , AGE UNDETERMINED ABNORMAL ECG WHEN COMPARED WITH ECG OF 19-AUG-2017 07:40, MINIMAL CRITERIA FOR ANTERIOR INFARCT ARE NOW PRESENT CRITERIA FOR INFERIOR INFARCT ARE NO LONGER PRESENT Confirmed by CORONA WHALEY, VINITA ([id number]) on 02/19/2018 10:11:46 AM Referred By: Confirmed By:VINITA JETER MD
--- NOTE | 2018-02-19 18:00 | CON.CARD ---
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 Onset of chest pressure at rest after eating dinner. Not similar to prior anginal pain, but resolved after SL NTG with ems. No recurrence since. goes to gym 3 times a week. He was last in the gym yesterday on the treadmill, stationary bike pmhx/pshx: per hpi, R inguinal hernia repair, AAA rupture repair social hx: former tob, half a can of beer in a couple of weeks fam hx: no premature cad. ros: per hpi echo 06/12/14: mild conc lvh, mild global hk with mildly reduced lvef, nl rv s/f , trace-mild AI, nl ao root cp/cad/hl - currently cp free - known cad --> check echo and repeat stress test. - on AC, no need for asa, con't home statin. aflutter - rate controlled off av silvia blockade, - con't ac with low dose eliquis
[2018-02-19] MEDS ORDERED: ROSUVASTATIN CA 20 MG TABLET (FP) PO SCH (22:00)
== END 2018-02-19 06:36 | disposition short-term general hospital (02) ==
LOC: JER 19:10 → JERBED 21:20
PROVIDERS: ADMIT Internal Medicine; ATTEND Internal Medicine
PROC: 3E033GC Introduction of Other Therapeutic Substance into Peripheral Vein, Percutaneous Approach (ICD-10-PCS; principal; 2018-02-18)
DX: I21.4 Non-ST elevation (NSTEMI) myocardial infarction (principal); R07.9 Chest pain, unspecified; I10 Essential (primary) hypertension; I25.10 Atherosclerotic heart disease of native coronary artery without angina pectoris; I25.2 Old myocardial infarction; I50.42 Chronic combined systolic (congestive) and diastolic (congestive) heart failure; E78.5 Hyperlipidemia, unspecified; E11.9 Type 2 diabetes mellitus without complications; D50.9 Iron deficiency anemia, unspecified; Z87.891 Personal history of nicotine dependence; Z79.01 Long term (current) use of anticoagulants; Z79.82 Long term (current) use of aspirin; Z95.1 Presence of aortocoronary bypass graft; Z95.5 Presence of coronary angioplasty implant and graft; Z86.79 Personal history of other diseases of the circulatory system; R79.89 Other specified abnormal findings of blood chemistry; K51.90 Ulcerative colitis, unspecified, without complications; I95.9 Hypotension, unspecified
CPT/HCPCS: 36415; 71045-TC-FY; 80053; 82550; 82553; 82962; 83880; 84484; 85025; 85610; 85730; 93005; 93010; 96374; 96375; 99285-25; G0378; J1644